=== PATIENT | female | born 1935 | race Caucasian/White ===

== ENCOUNTER 2017-05-27 20:36 | Emergency (ER) | payer MEDICARE ==
[2017-05-27] MEDS ORDERED: NS 0.9% 1000 ML* 1,000 ML IV ONE (21:05)
--- NOTE | 2017-05-27 21:30 | RAD ---
INDICATION: Left temporal hematoma after a fall COMPARISON: Chest x-ray dated November 27, 2007 TECHNIQUE: Single AP portable view of the chest was obtained. FINDINGS: Image quality is compromised due to the relative inferiority of a portable chest x-ray. The heart and mediastinum exhibit normal size and contour. The lungs are grossly clear. There is no evidence of a large pleural effusion. Visualized bones are normal for the patient's age. IMPRESSION: No radiographic evidence for acute cardiopulmonary abnormality on this portable chest x-ray.
[2017-05-27 21:35] LABS: Hematocrit 41 % (35-47); Hemoglobin 13.5 g/dl (12.0-16.0); Mean Corpuscular HGB Conc 33 g/dl (31-36); Mean Corpuscular Hemoglobin 32 pg (27-31); Mean Corpuscular Volume 95 fL (80-97); Mean Platelet Volume 7 um3 (7.4-10.4); Red Blood Count 4.29 10^6/ul (4.0-5.4); Red Cell Distribution Width 13 % (10.5-15); White Blood Count 7.1 10^3/ul (3.5-10.8)
[2017-05-27 21:48] LABS: Albumin 3.9 g/dL (3.2-5.2); BUN/Creatinine Ratio 19.7 (8-20); Calcium 9.3 mg/dL (8.6-10.3); EGFR African American 42.3 (>60); EGFR Non-African American 32.9 (>60); Globulin 3.6 g/dL (2-4); Magnesium 1.5 mg/dL (1.9-2.7); Potassium 3.3 mmol/L (3.5-5.0); Total Bilirubin 0.4 mg/dL (0.2-1.0); Total Protein 7.5 g/dL (6.4-8.9)
[2017-05-27 21:50] LABS: Troponin I 0.01 ng/mL (<0.04)
[2017-05-27 22:20] LABS: TSH (Thyroid Stimulating Horm) 6.06 mcIU/mL (0.34-5.60)
[2017-05-27] MEDS ORDERED: Acetaminophen TAB* 325 MG PO ONE (22:36)
[2017-05-27] MEDS ORDERED: Potassium Chlor TAB* 20 MEQ TAB.ER PO ONE (23:00)
[2017-05-27 23:41] VITALS: BP 135/76
--- NOTE | 2017-05-28 07:48 | RAD ---
INDICATION: Intracranial injury COMPARISON: None TECHNIQUE: Noncontrast axial source images were acquired from the skull base to the vertex. FINDINGS: Ventricles/sulci: The ventricles and cisterns are normal in size and configuration for age. Brain parenchyma: There is minor periventricular and subcortical white matter change compatible with chronic ischemia. Intracranial hemorrhage:None. Extra-axial spaces: There are no abnormal extra axial fluid collections or evidence of extra-axial mass. Calvarium: There is no calvarial fracture or other calvarial abnormality. Scalp: Large left frontal scalp hematoma and laceration. Is also a small heterogeneous calcification noted incidentally. Paranasal sinuses/mastoid: The paranasal sinuses and mastoid air cells are clear. Other: None. IMPRESSION: No acute intracranial findings. Left frontal scalp hematoma
--- NOTE | 2017-05-31 14:16 | ED ---
Ivan Paredes Alfonso, scribed for Vicky Shell MD on 05/27/17 at 2107 . Adult Trauma - HPI Summary HPI Summary: This patient is an 81 year old F BIBA to [facility] accompanied by daughter and [id number] s/p a fall at approximately 1945 today. She was wearing crocs, then turned the corner, pivoted, skidded, fell, and hit my head on a dresser. She was on the floor and got help through a medic alert button. The patient rates the aching pain 4/10 in severity. Symptoms aggravated by nothing. Symptoms alleviated by nothing. Patient reports head trauma. Patient denies LOC , CP, SOB, and dizziness. She lives alone. She drinks two cocktails daily. PMHx includes A-Fib, and breast cancer (remission). Her daily medications are Diltiazem HCL 240 mg, metoprolol tartrate 25 mg, ASA 81 mg, and furosemide 20 mg. 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 Patient denies LOC, CP, SOB, and dizziness.. Negative: SOB, Chest Pain, Nausea/ Vomiting, Loss of Consciousness Related History: Anticoagulants - aspirin 81mg only - Allergy/Home Medications Allergies/Adverse Reactions: Allergies Allergy/AdvReac Type Severity Reaction Status Date / Time No Known Allergies Allergy Verified 05/27/17 21:33 PMH/Surg Hx/FS Hx/Imm Hx Previously Healthy: No Cardiovascular History: Reports: Hx Atrial Fibrillation, Hx Congestive Heart Failure, Hx Hypertension Opthamlomology History: Denies: Hx Legally Blind EENT History: Denies: Hx Deafness - Cancer History Cancer Type, Location and Year: breast cancer, remission Hx Chemotherapy: No Hx Radiation Therapy: Yes - 1995 - Surgical History Surgery Procedure, Year, and Place: no surg hx Infectious Disease History: No Infectious Disease History: Denies: Traveled Outside the [place] in Last 30 Days - Family History Known Family History: Positive: Diabetes - Brother, Other - Lung cancer father, CHF mother - Social History Lives: Alone Alcohol Use: Daily - 2 cocktails Hx Substance Use: No Substance Use Type: Reports: None Smoking Status (MU): Former Smoker Review of Systems Negative: Fever Negative: Chest Pain Negative: Shortness Of Breath Positive: Other - fall Positive: Bruising - left frontal hematoma Neurological: Other - head trauma; negative LOC and dizziness All Other Systems Reviewed And Are Negative: Yes Physical Exam Triage Information Reviewed: Yes Vital Signs On Initial Exam: Initial Vitals Temp Pulse Resp BP Pulse Ox 96.8 F 87 18 155/80 95 05/27/17 20:39 05/27/17 20:39 05/27/17 20:39 05/27/17 20:39 05/27/17 20:39 Vital Signs Reviewed: Yes Appearance: Positive: Well-Appearing, Well-Nourished, Pain Distress Skin: Positive: Warm, Skin Color Reflects Adequate Perfusion, Other - Left frontal purple hematoma. Head/Face: Positive: Cephalohematoma - left frontal Eyes: Positive: EOMI, MATT, Conjunctiva Clear ENT: Positive: Normal ENT inspection, Pharynx normal, TMs normal, Other - No Pacheco's signs or raccoon eyes Neck: Positive: Supple, Nontender Respiratory/Lung Sounds: Positive: Clear to Auscultation, Breath Sounds Present , Other - no respiratory distress Cardiovascular: Positive: Pulses are Symmetrical in both Upper and Lower Extremities, IRR, Other - Brisk capillary refill. Negative: Murmur Abdomen Description: Positive: Nontender, No Organomegaly, Soft. Negative: Distended, Guarding, Peritoneal Signs, Pulsatile Mass Bowel Sounds: Positive: Present Musculoskeletal: Positive: Strength/ROM Intact, Other - No calf tenderness. Negative: Edema Left, Edema Right Neurological: Positive: Sensory/Motor Intact, Alert, Oriented to Person Place, Time, CN Intact II-III, Normal Gait, Facial Symmetry, Speech Normal Psychiatric: Positive: Normal Diagnostics - Vital Signs Vital Signs Temp Pulse Resp BP Pulse Ox 05/27/17 20:39 96.8 F 87 18 155/80 95 - Laboratory Lab Results: Lab Results 10/10/1205/27/17 05/27/17 Range/Units 21:26 21:26 21:26 WBC (3.5-10.8) 10^3/ul RBC (4.0-5.4) 10^6/ul Hgb (12.0-16.0) g/dl Hct (35-47) % MCV (80-97) fL MCH (27-31) pg MCHC (31-36) g/dl RDW (10.5-15) % Plt Count (150-450) 10^3/ul MPV (7.4-10.4) um3 Neut % (Auto) (38-83) % Lymph % (Auto) (25-47) % Bacon % (Auto) (1-9) % Eos % (Auto) (0-6) % Baso % (Auto) (0-2) % Absolute Neuts (auto) (1.5-7.7) 10^3/ul Absolute Lymphs (auto) (1.0-4.8) 10^3/ul Absolute Monos (auto) (0-0.8) 10^3/ul Absolute Eos (auto) (0-0.6) 10^3/ul Absolute Basos (auto) (0-0.2) 10^3/ul Absolute Nucleated RBC 10^3/ul Nucleated RBC % INR (Anticoag Therapy) 0.90 (0.89-1.11) APTT 27.4 (26.0-36.3) seconds Sodium 133 (133-145) mmol/L Potassium 3.3 L (3.5-5.0) mmol/L Chloride 99 L (101-111) mmol/L Carbon Dioxide 23 (22-32) mmol/L Anion Gap 11 (2-11) mmol/L BUN 30 H (6-24) mg/dL Creatinine 1.52 H (0.51-0.95) mg/dL Est GFR ( Amer) 42.3 (>60) Est GFR (Non-Af Amer) 32.9 (>60) BUN/Creatinine Ratio 19.7 (8-20) Glucose 114 H (70-100) mg/dL Lactic Acid (0.5-2.0) mmol/L Calcium 9.3 (8.6-10.3) mg/dL Magnesium 1.5 L (1.9-2.7) mg/dL Total Bilirubin 0.40 (0.2-1.0) mg/dL AST 22 (13-39) U/L ALT 18 (7-52) U/L Alkaline Phosphatase 115 H (34-104) U/L Troponin I 0.01 (<0.04) ng/mL B-Natriuretic Peptide 188 H ( - 100) pg/mL Total Protein 7.5 (6.4-8.9) g/dL Albumin 3.9 (3.2-5.2) g/dL Globulin 3.6 (2-4) g/dL Albumin/Globulin Ratio 1.1 (1-3) TSH 6.06 H (0.34-5.60) mcIU/mL Serum Alcohol 215 H (<10) mg/dL 05/27/17 05/27/17 Range/Units 21:26 21:26 WBC 7.1 (3.5-10.8) 10^3/ul RBC 4.29 (4.0-5.4) 10^6/ul Hgb 13.5 (12.0-16.0) g/dl Hct 41 (35-47) % MCV 95 (80-97) fL MCH 32 H (27-31) pg MCHC 33 (31-36) g/dl RDW 13 (10.5-15) % Plt Count 234 (150-450) 10^3/ul MPV 7 L (7.4-10.4) um3 Neut % (Auto) 69.8 (38-83) % Lymph % (Auto) 20.5 L (25-47) % Bacon % (Auto) 7.4 (1-9) % Eos % (Auto) 1.4 (0-6) % Baso % (Auto) 0.9 (0-2) % Absolute Neuts (auto) 5.0 (1.5-7.7) 10^3/ul Absolute Lymphs (auto) 1.5 (1.0-4.8) 10^3/ul Absolute Monos (auto) 0.5 (0-0.8) 10^3/ul Absolute Eos (auto) 0.1 (0-0.6) 10^3/ul Absolute Basos (auto) 0.1 (0-0.2) 10^3/ul Absolute Nucleated RBC 0 10^3/ul Nucleated RBC % 0 INR (Anticoag Therapy) (0.89-1.11) APTT (26.0-36.3) seconds Sodium (133-145) mmol/L Potassium (3.5-5.0) mmol/L Chloride (101-111) mmol/L Carbon Dioxide (22-32) mmol/L Anion Gap (2-11) mmol/L BUN (6-24) mg/dL Creatinine (0.51-0.95) mg/dL Est GFR ( Amer) (>60) Est GFR (Non-Af Amer) (>60) BUN/Creatinine Ratio (8-20) Glucose (70-100) mg/dL Lactic Acid 1.6 (0.5-2.0) mmol/L Calcium (8.6-10.3) mg/dL Magnesium (1.9-2.7) mg/dL Total Bilirubin (0.2-1.0) mg/dL AST (13-39) U/L ALT (7-52) U/L Alkaline Phosphatase (34-104) U/L Troponin I (<0.04) ng/mL B-Natriuretic Peptide ( - 100) pg/mL Total Protein (6.4-8.9) g/dL Albumin (3.2-5.2) g/dL Globulin (2-4) g/dL Albumin/Globulin Ratio (1-3) TSH (0.34-5.60) mcIU/mL Serum Alcohol (<10) mg/dL Result Diagrams: 05/27/17 21:26 05/27/17 21:26 Lab Statement: Any lab studies that have been ordered have been reviewed, and results considered in the medical decision making process. - Radiology CXR Radiology Interpretation Completed By: Radiologist - No radiographic evidence for acute cardiopulmonary abnormality on this portable chest x-ray. ED physician has reviewed this radiology report and agrees. - CT Brain CT Interpretation Completed By: Radiologist - No acute brain parenchymal abnormality. No hemorrhage, mass or acute territorial infarct. Age-related involutional changes and chronic small vessel changes. Chronic lacunar infarct left basal ganglia. No skull fracture. Swelling and small acute hematoma left frontal scalp. Nearby partly calcified scalp nodule incidentally noted. Clear visualized paranasal sinuses. Visualized mastoid air cells clear. ED physician has reviewed this radiology report and agrees. - EKG 2121 Cardiac Rate: NL - BPM 64 EKG Rhythm: Atrial Fibrillation EKG Interpretation: Borderline IV conduction delay (112). Prolonged QTc (511). Normal axis. NAC EKG Comparison: Other - No prior to compare Re-Evaluation - Re-Evaluation First Eval Re-Evaluation Time: 22:30 Change: Unchanged Comment: Daughter states patient has a headache for which she would like pain medication. Second Eval Re-Evaluation Time: 23:11 Change: Improved Comment: Lab and imaging results reviewed with patient. Adult Trauma Course/Dx - Course Course Of Treatment: Given IV fluids x 1 liter. KCL 40mEq po x 1 for K+ 3.3. acetaminophen 650mg po for JOSEPH. EtOH level 215 (pt and daughter surprised that level is this high, but pt admits ETOH). BUN 30/1.52 worse than previous. Mag 1.5 low. alk phos [address] brain left frontal hematoma. CXR NAD Assessment/Plan: This patient is an 81 year [facility] by daughter and [id number] s/p a fall at approximately 1945 today. She was wearing crocs, then turned the corner, pivoted, skidded, fell, and hit my head on a dresser. She was on the floor and got help through a medic alert button. The patient rates the aching pain 4/10 in severity. Symptoms aggravated by nothing. Symptoms alleviated by nothing. Patient reports head trauma. Patient denies LOC, CP, SOB, and dizziness. She lives alone. She drinks two cocktails daily. PMHx includes A-Fib, and breast cancer (remission). Her daily medications are Diltiazem HCL 240 mg, metoprolol tartrate 25 mg, ASA 81 mg, and furosemide 20 mg. She is not orthostatic. An EKG reveals A-Fib. CXR reveals No radiographic evidence for acute cardiopulmonary abnormality on this portable chest x-ray. ED physician has reviewed this radiology report and agrees. CT brain reveals No acute brain parenchymal abnormality. No hemorrhage, mass or acute territorial infarct. Age-related involutional changes and chronic small vessel changes. Chronic lacunar infarct left basal ganglia. No skull fracture. Swelling and small acute hematoma left frontal scalp. Nearby partly calcified scalp nodule incidentally noted. Clear visualized paranasal sinuses. Visualized mastoid air cells clear. ED physician has reviewed this radiology report and agrees. Patient will be discharged with follow up from PCP. The patient and family are agreeable with this plan. - Diagnoses Differential Diagnosis/HQI/PQRI: Positive: Abrasion(s), Contusion(s), Fracture, Hematoma(s), Laceration(s) Provider Diagnoses: Fall, Hematoma of frontal scalp, Alcohol intoxication, Hypokalemia, Hypomagnesemia, Hypertension, poor control, Chronic kidney disease (CKD) stage G3b/A3, moderately decreased glomerular filtration rate (GFR) between 30-44 mL/ min/1.73 square meter and albuminuria creatinine ratio greater than 300 mg/g, Atrial fibrillation Discharge - Discharge Plan Condition: Stable Disposition: HOME Patient Education Materials: Fall Prevention for Older Adults (ED), Head Injury (ED), At-Risk Alcohol Use (ED) Referrals: [facility] PHYSICIAN REFERRAL [Outside] (CALL THIS NUMBER TO GET ESTABLISHED WITH A PRIMARY CARE PROVIDER ) No Primary Care Phys,NOPCP [Primary Care Provider] - Additional Instructions: YOUR POTASSIUM WAS SLIGHTLY LOW AT 3.3, AND WE GAVE YOU ORAL POTASSIUM. YOUR ALCOHOL LEVEL WAS ELEVATED. YOUR CT BRAIN SHOWED ONLY THE HEMATOMA, NO FRACTURE OR BLEED IN THE BRAIN. YOUR KIDNEY FUNCTION IS WORSENED SINCE 2015 AND WILL NEED DEFINITE FOLLOW UP. RETURN TO THE ER IF ANY NEW OR WORSENING SYMPTOMS. The documentation as recorded by the Ivan cunningham Alfonso accurately reflects the service I personally performed and the decisions made by me, Vicky Shell MD.
== END 2017-05-27 23:39 | disposition home or self-care (01) ==
LOC: ED 20:36
DX: F10.129 Alcohol abuse with intoxication, unspecified (principal); I10 Essential (primary) hypertension; N18.9 Chronic kidney disease, unspecified; S00.03XA Contusion of scalp, initial encounter; W19.XXXA Unspecified fall, initial encounter; Y93.9 Activity, unspecified; Y92.9 Unspecified place or not applicable; E87.6 Hypokalemia; I48.91 Unspecified atrial fibrillation
CPT/HCPCS: 36415; 70450; 71010; 80053; 80320; 83605; 83735; 83880; 84443; 84484; 85025; 85610; 85730; 93005; 99283; A9270-GY; G0480

== ENCOUNTER 2017-10-02 21:09 | Observation (INO) | payer MEDICARE ==
[2017-10-02] MEDS ORDERED: Ondansetron INJ* 2 MG/ML VIAL IV ONE (22:34)
[2017-10-02] MEDS ORDERED: Morphine INJ* 2 MG/ML 1 ML CARPUJECT IV ONE (22:35)
[2017-10-02] MEDS ORDERED: Ketorolac INJ* 30 MG/ML 1 ML VIAL IV PUSH ONE (22:42)
[2017-10-03 00:40] LABS: EGFR Non-African American 36.1 (>60)
[2017-10-03 00:48] LABS: INR 0.89 (0.77-1.02)
--- NOTE | 2017-10-03 01:41 | ED ---
Edd Paredes Gabriel, scribed for Jackelyn Martin MD on 10/02/17 at 2131 . 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 The pt states she tripped on the carpet in her kitchen and fell hitting her left hip and left buttock. The patient rates the pain 3/10 in severity. Patient reports left hip pain. Patient denies LOC, head trauma, and increased edema from base line. Pt has bilateral artificial hip replacements and was unable to ambulate after the fall. Denies blood thinner use. - History of Current Complaint Chief Complaint: EDExtremityLower Stated Complaint: FALL Time Seen by Provider: 10/02/17 21:18 Hx Obtained From: Patient - 4 Mechanism of Injury: Fall Ambulatory at the Scene: No Loss of Consciousness: no loss of consciousness Onset/Duration: Still Present Onset of Pain: Immediate Onset Severity: Mild Current Severity: Mild Pain Intensity: 3 Pain Scale Used: 0-10 Numeric Location: Other - hip Associated Signs & Symptoms: Positive: Negative - head trauma, Other: - left hip pain. Negative: Loss of Consciousness - Allergy/Home Medications Allergies/Adverse Reactions: Allergies Allergy/AdvReac Type Severity Reaction Status Date / Time No Known Allergies Allergy Verified 05/27/17 21:33 PMH/Surg Hx/FS Hx/Imm Hx Endocrine/Hematology History: Denies: Hx Anticoagulant Therapy Cardiovascular History: Reports: Hx Atrial Fibrillation, Hx Congestive Heart Failure, Hx Hypertension Respiratory History: Denies: Hx Chronic Obstructive Pulmonary Disease (COPD) Sensory History: Denies: Hx Legally Blind, Hx Deafness Opthamlomology History: Denies: Hx Legally Blind - Cancer History Cancer Type, Location and Year: breast cancer, remission Hx Chemotherapy: No Hx Radiation Therapy: Yes - 1995 - Surgical History Surgery Procedure, Year, and Place: no surg hx Infectious Disease History: No Infectious Disease History: Denies: Traveled Outside the [place] in Last 30 Days - Family History Known Family History: Positive: Diabetes - Brother, Other - Lung cancer father, CHF mother - Social History Lives: With Family Alcohol Use: Occasionally Alcohol Amount: 2 cocktails daily Hx Substance Use: No Substance Use Type: Reports: None Smoking Status (MU): Former Smoker Review of Systems Constitutional: Negative - head trauma Positive: Other - left hip pain . Negative: Edema Neurological: Negative - LOC All Other Systems Reviewed And Are Negative: Yes Physical Exam - Summary Physical Exam Summary: VITAL SIGNS: Reviewed. GENERAL: Patient is a well-developed and nourished female who is lying comfortable in the stretcher. Patient is not in any acute respiratory distress. HEAD AND FACE: No signs of trauma. No ecchymosis, hematomas or skull depressions. No sinus tenderness. EYES: PERRLA, EOMI x 2, No injected conjunctiva, no nystagmus. EARS: Hearing grossly intact. Ear canals and tympanic membranes are within normal limits. MOUTH: Oropharynx within normal limits. NECK: Supple, trachea is midline, no adenopathy, no JVD, no carotid bruit, no c- spine tenderness, neck with full ROM. CHEST: Symmetric, no tenderness at palpation LUNGS: Clear to auscultation bilaterally. No wheezing or crackles. CVS: Regular rate and rhythm, S1 and S2 present, no murmurs or gallops appreciated. ABDOMEN: Soft, non-tender. No signs of distention. No rebound no guarding, and no masses palpated. Bowel sounds are normal. EXTREMITIES: TTP over the left hip. Mild discomfort with flexion of the left hip. NEURO: Alert and oriented x 3. No acute neurological deficits. Speech is normal and follows commands. SKIN: Dry and warm Triage Information Reviewed: Yes Vital Signs On Initial Exam: Initial Vitals Temp Pulse Resp BP Pulse Ox 97.9 F 80 22 140/77 93 10/02/17 21:13 10/02/17 21:13 10/02/17 21:13 10/02/17 21:13 10/02/17 21:13 Vital Signs Reviewed: Yes Diagnostics - Vital Signs Vital Signs Temp Pulse Resp BP Pulse Ox 10/02/17 21:13 97.9 F 80 22 140/77 93 - Laboratory Lab Results: Lab Results 10/03/17 10/03/17 Range/Units 00:15 00:15 INR (Anticoag Therapy) 0.89 (0.77-1.02) APTT 20.8 L (26.0-36.3) seconds Sodium 133 (133-145) mmol/L Potassium 3.6 (3.5-5.0) mmol/L Chloride 99 L (101-111) mmol/L Carbon Dioxide 23 (22-32) mmol/L Anion Gap 11 (2-11) mmol/L BUN 27 H (6-24) mg/dL Creatinine 1.40 H (0.51-0.95) mg/dL Est GFR ( Amer) 46.4 (>60) Est GFR (Non-Af Amer) 36.1 (>60) BUN/Creatinine Ratio 19.3 (8-20) Glucose 103 H (70-100) mg/dL Calcium 9.9 (8.6-10.3) mg/dL Total Bilirubin 0.40 (0.2-1.0) mg/dL AST 22 (13-39) U/L ALT 17 (7-52) U/L Alkaline Phosphatase 133 H (34-104) U/L Total Protein 8.0 (6.4-8.9) g/dL Albumin 4.2 (3.2-5.2) g/dL Globulin 3.8 (2-4) g/dL Albumin/Globulin Ratio 1.1 (1-3) Result Diagrams: 10/03/17 00:15 Lab Statement: Any lab studies that have been ordered have been reviewed, and results considered in the medical decision making process. 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 The pt states she tripped on the carpet in her kitchen and fell hitting her left hip and left buttock. The patient rates the pain 3/10 in severity. Patient reports left hip pain. Patient denies LOC, head trauma, and increased edema from base line. Pt has bilateral artificial hip replacements and was unable to ambulate after the fall. Denies blood thinner use. Hip XR reveals, no fracture seen. CT pelvis reveals, per radiology, no evidence of acute traumatic pathology. Test results with no significant abnormalities. Blood work obtained. In the ED course the patient was given toradol, Zofran, and morphine. We discussed patient care with Dr. Rapp and they have agreed to admit the patient. Dx hip pain. Patient [facility] be [place] [facility] [place]. The patient is agreeable with this plan. - Diagnoses Provider Diagnoses: Left hip pain - Physician Notifications Discussed Care Of Patient With: Ken Rapp Time Discussed With Above Provider: 01:20 Instructed by Provider To: Admit As Inpatient Discharge - Discharge Plan Condition: Fair Disposition: ADMITTED TO [facility] Referrals: No Primary Care Phys,NOPCP [Primary Care Provider] - The documentation as recorded by the Edd cunningham Gabriel accurately reflects the service I personally performed and the decisions made by me, Jackelyn Martin MD.
[2017-10-03] MEDS ORDERED: Albuterol 2.5 MG/3 ML NEB.SOL* (0.083%) INH PRN (01:44)
[2017-10-03] MEDS ORDERED: CMCS:Melatonin (NF) 3 MG TAB PO PRN (01:44)
[2017-10-03] MEDS ORDERED: oxyCODONE TAB* 5 MG TAB PO PRN (01:45)
[2017-10-03] MEDS ORDERED: Ondansetron INJ* 2 MG/ML VIAL IV PRN (01:45)
[2017-10-03] MEDS ORDERED: traMADol TAB* 50 MG PO PRN (01:45)
--- NOTE | 2017-10-03 02:16 | HP ---
H&P (Free Text) History and Physical: PCP: none Date/Time: 10/03/2017 0140 CC: L hip pain s/p fall HPI: Mrs Dangelo is an 82YO obese white female who lives alone w/ HX B BEN, AFIB, HTN, breast CA, & GI bleed who was at home putting a dish in her refrigerator when she tripped over a rug and fell back on her buttocks. There was no head impact or LOC. She had immediate pain in the L hip with weight bearing and walking, but none at rest. She denies prodromal symptoms, specifically chest pain, SOB, palpitations, light-headedness, focal W/N/T, or other issues. She has been given ketorolac IV in ED, but is still unable to ambulate. PMedHx AFIB not on anticoagulation GI bleed on rivaroxaban HTN HX R breast CA Medications Nursing to reconcile. Allergies No Known Allergies Allergy (Verified 05/27/17 21:33) PSurgHx R lumpectomy hysterectomy ORIF R forearm B BEN SocHx: quit smoking >40years ago, 1-2 alcoholic drinks daily, no recreational drugs; , lives alone; DNR/I code status FamHx: Mother passed at 83 of CHF. Father passed at 65 of lung CA. ROS: as above, otherwise reviewed and all were negative vitals: Vital Signs Temp 36.6 C 10/02/17 21:13 Pulse 75 10/03/17 02:00 Resp 22 10/02/17 21:13 BP 143/81 10/03/17 02:00 Pulse Ox 93 10/03/17 02:00 Intake & Output 10/02/17 10/02/17 10/03/17 11:59 23:59 11:59 Weight 95.254 kg Constitutional: NAD, normally developed, obese white female HEENM: atraumatic; sclera/conjunctiva: aniciteric/clear; hearing: clinically intact; oropharynx: clear, mucosa moist Neck: soft tissue: non-tender; thyroid: normal Pulmonary: clear to auscultation bilaterally, good aeration, no accessory muscle use CV: RR/RR, normal S1S2, no carotid bruit, no jugular venous distention, 2+ B DP/ PT, trace BLE edema Abdominal: soft, non-distended, non-tender, no rebound/guarding/rigidity, normoactive bowel sounds, no hepatosplenomegaly or masses, no costovertebral angle tenderness Musculoskeletal: general: grossly intact, no tenderness w/ palpation Integumental: normal appearance and texture of exposed skin Psychiatric orientation: AA&O to PPS affect: calm mood: cooperative eye contact: good content: reliable responses: timely insight: fair to good Testing: Lab Results 10/03/17 10/03/17 Range/Units 00:15 00:15 INR (Anticoag Therapy) 0.89 (0.77-1.02) APTT 20.8 L (26.0-36.3) seconds Sodium 133 (133-145) mmol/L Potassium 3.6 (3.5-5.0) mmol/L Chloride 99 L (101-111) mmol/L Carbon Dioxide 23 (22-32) mmol/L Anion Gap 11 (2-11) mmol/L BUN 27 H (6-24) mg/dL Creatinine 1.40 H (0.51-0.95) mg/dL Est GFR ( Amer) 46.4 (>60) Est GFR (Non-Af Amer) 36.1 (>60) BUN/Creatinine Ratio 19.3 (8-20) Glucose 103 H (70-100) mg/dL Calcium 9.9 (8.6-10.3) mg/dL Total Bilirubin 0.40 (0.2-1.0) mg/dL AST 22 (13-39) U/L ALT 17 (7-52) U/L Alkaline Phosphatase 133 H (34-104) U/L Total Protein 8.0 (6.4-8.9) g/dL Albumin 4.2 (3.2-5.2) g/dL Globulin 3.8 (2-4) g/dL Albumin/Globulin Ratio 1.1 (1-3) XRY pelvis & L hip, personally reviewed: no acute abnormality CT pelvis WO, personally reviewed: IMPRESSION: No evidence of acute traumatic pathology. Impression: 82F presenting with intractable L hip pain s/p mechanical fall, no bony injury identified on CT DIAGNOSIS & PLAN Primary intractable L hip pain s/p mechanical fall : no bony injury identified on CT or XRY : pain control : PT evaluation : consider orthopedic consult in AM : supportive care Secondary AFIB : not on anticoagulation : review meds once reconciled HX GI bleed on rivaroxaban : no acute issues HTN: review meds once reconciled HX R breast CA : no evidence of disease Admission Rational: observation for pain control DVTp: SCDs & heparin SQ Code Status: full, considering DNR/I HCP: daughterKrystyna
[2017-10-03] MEDS: Acetaminophen TAB* 325 MG PO PRN ×2 (03:26→18:24)
[2017-10-03] MEDS ORDERED: Omeprazole CAP* 20 MG PO SCH (06:00)
--- NOTE | 2017-10-03 07:19 | RAD ---
INDICATION: Left hip injury. COMPARISON: There are no prior studies available for comparison. TECHNIQUE: An AP view of the pelvis and frontal and lateral views of the left hip were obtained. FINDINGS: The patient is status post total bilateral hip replacement surgery. The bones and prostheses are in normal alignment. No fracture is seen. IMPRESSION: STATUS POST TOTAL BILATERAL HIP REPLACEMENT SURGERY, NO EVIDENCE FOR FRACTURE.
--- NOTE | 2017-10-03 07:25 | RAD ---
INDICATION: Trauma, left hip pain. COMPARISON: Correlation is made with a prior x-ray study of the left hip of the same date. TECHNIQUE: Contiguous axial sections were obtained through the pelvis without intravenous or oral contrast. Images were reconstructed in the coronal and sagittal planes. FINDINGS: The patient is status post total bilateral hip replacement surgery. The bones and prostheses are in normal alignment. There is no gross evidence for loosening. No fracture is seen. There is osteitis pubis and mild bilateral sacroiliitis. There is moderate degenerative disc disease in the visualized portion of the lower lumbar spine. The visualized portion of the small bowel colon appear nondistended. There is moderate sigmoid diverticulosis without evidence for diverticulitis. No free intraperitoneal air or fluid is seen. No hematoma is noted. IMPRESSION: STATUS POST TOTAL BILATERAL HIP REPLACEMENT SURGERY, NO EVIDENCE FOR ACUTE FINDING.
[2017-10-03] MEDS ORDERED: Acetaminophen TAB* 325 MG PO ONE (10:00)
[2017-10-03] MEDS ORDERED: Metoprolol Tartrate TAB* 25 MG PO SCH (10:00)
--- NOTE | 2017-10-03 10:00 | PN ---
Subjective Date of Service: 10/03/17 Interval History: L hip pain better but still needed assist to use bedside commode this AM. She was able to stand unassisted. She can move her leg in bed which she coulgdn't do last night. Objective Active Medications: Acetaminophen (Tylenol Tab*) 650 mg PO Q6H PRN PRN Reason: FEVER/PAIN Last Admin: 10/03/17 03:26 Dose: 650 mg Acetaminophen (Tylenol Tab*) 975 mg PO ONCE ONE Stop: 10/03/17 10:01 Albuterol (Ventolin 2.5 Mg/3 Ml Neb.Kecia*) 2.5 mg INH Q2H PRN PRN Reason: SOB/WHEEZING Docusate Sodium (Colace Cap*) 200 mg PO BID SOILA Heparin Sodium (Porcine) (Heparin Vial(*)) 5,000 units SUBCUT Q8HR SOILA Omeprazole (Prilosec Cap*) 20 mg PO DAILY@0600 [facility] Last Admin: 10/03/17 06:13 Dose: Not Given Ondansetron HCl (Zofran Inj*) 4 mg IV Q6H PRN PRN Reason: NAUSEA Oxycodone HCl (Roxycodone Tab*) 5 mg PO Q4H PRN PRN Reason: PAIN Tramadol HCl (Ultram*) 50 mg PO Q6H PRN PRN Reason: PAIN Vital Signs - 8 hr 10/03/17 10/03/17 10/03/17 02:00 02:30 02:56 Temperature 98.3 F Pulse Rate 75 78 78 Respiratory 18 Rate Blood Pressure 143/81 118/102 118/102 (mmHg) O2 Sat by Pulse 93 91 91 Oximetry 10/03/17 10/03/17 10/03/17 03:10 07:25 07:41 Temperature 98.2 F 98.6 F Pulse Rate 84 85 Respiratory 20 16 16 Rate Blood Pressure 158/91 176/82 (mmHg) O2 Sat by Pulse 97 97 Oximetry 10/03/17 08:00 Temperature Pulse Rate 85 Respiratory 17 Rate Blood Pressure (mmHg) O2 Sat by Pulse 97 Oximetry Oxygen Devices in Use Now: None Appearance: Alert, partly up in bed. In good spirits. Looks comfortable. Eyes: No Scleral Icterus Neck: NL Appearance and Movements; NL JVP, No Thyroid Enlargement, Masses Respiratory: Symmetrical Chest Expansion and Respiratory Effort, Clear to Auscultation, Clear to Percussion Cardiovascular: NL Sounds; No Murmurs; No JVD, RRR, No Edema, - Extremities: No Edema, No Clubbing, Cyanosis, - Skin: No Rash or Ulcers, No Nodules or Sclerosis, - Neurological: Alert and Oriented x 3, NL Sensation Result Diagrams: 10/03/17 00:15 Additional Lab and Data: Lab Results 10/03/17 10/03/17 Range/Units 00:15 00:15 INR (Anticoag Therapy) 0.89 (0.77-1.02) APTT 20.8 L (26.0-36.3) seconds Sodium 133 (133-145) mmol/L Potassium 3.6 (3.5-5.0) mmol/L Chloride 99 L (101-111) mmol/L Carbon Dioxide 23 (22-32) mmol/L Anion Gap 11 (2-11) mmol/L BUN 27 H (6-24) mg/dL Creatinine 1.40 H (0.51-0.95) mg/dL Est GFR ( Amer) 46.4 (>60) Est GFR (Non-Af Amer) 36.1 (>60) BUN/Creatinine Ratio 19.3 (8-20) Glucose 103 H (70-100) mg/dL Calcium 9.9 (8.6-10.3) mg/dL Total Bilirubin 0.40 (0.2-1.0) mg/dL AST 22 (13-39) U/L ALT 17 (7-52) U/L Alkaline Phosphatase 133 H (34-104) U/L Total Protein 8.0 (6.4-8.9) g/dL Albumin 4.2 (3.2-5.2) g/dL Globulin 3.8 (2-4) g/dL Albumin/Globulin Ratio 1.1 (1-3) Assess/Plan/Problems-Billing Assessment: - Patient Problems (1) Left hip pain Current Visit: Yes Status: Acute Code(s): M25.552 - PAIN IN LEFT HIP SNOMED Code(s): 28432574 Comment: Neg CT. Suspect muscle/ligament strain/spasm. Improved. APAP 1 gm po now, reevaluate in about 4 hrs. (2) Atrial fibrillation Current Visit: Yes Status: Acute Code(s): I48.91 - UNSPECIFIED ATRIAL FIBRILLATION SNOMED Code(s): 17939382 Comment: Had GI bleed on rivaroxaban. Continue ASA, diltiazem. (3) CKD (chronic kidney disease) stage 3, GFR 30-59 ml/min Current Visit: Yes Status: Acute Code(s): N18.3 - CHRONIC KIDNEY DISEASE, STAGE 3 (MODERATE) SNOMED Code(s): 588617274 Comment: GFR 36.1 10/03/17.
[2017-10-03] MEDS: Diltiazem CD CAP* 240 MG PO SCH (10:11)
[2017-10-03] MEDS: Docusate CAP* 100 MG PO SCH ×2 (10:13→22:13)
[2017-10-03] MEDS: Albuterol HFA INHALER* 8 gm MDI INH PRN (15:36)
[2017-10-04] MEDS: Acetaminophen TAB* 325 MG PO PRN ×2 (00:33→08:59)
[2017-10-04] MEDS: Albuterol HFA INHALER* 8 gm MDI INH PRN (02:21)
[2017-10-04] MEDS ORDERED: Melatonin (NF) 3 MG TAB PO ONE (04:00)
[2017-10-04] MEDS ORDERED: Heparin VIAL(*) 5000 UNITS/ML VIAL (FIVE THOUSAND) SUBCUT SCH (06:00)
[2017-10-04] MEDS ORDERED: Omeprazole CAP* 20 MG PO SCH (07:30)
[2017-10-04 08:30] VITALS: BP 167/86
[2017-10-04] MEDS: Diltiazem CD CAP* 240 MG PO SCH (08:58)
[2017-10-04] MEDS: Docusate CAP* 100 MG PO SCH (08:59)
[2017-10-04] MEDS ORDERED: Metoprolol Tartrate TAB* 25 MG PO SCH (09:00)
[2017-10-04] MEDS ORDERED: Aspirin Low Dose CHEW TAB* 81 MG PO SCH (09:00)
[2017-10-04] MEDS ORDERED: Furosemide TAB* 20 MG PO SCH (09:00)
--- NOTE | 2017-10-04 10:51 | DS ---
DATE OF ADMISSION: 10/03/2017. DATE OF DISCHARGE: 10/04/2017. HISTORY OF PRESENT ILLNESS: This 82-year-old woman had a mechanical fall at home. She was very sore in her left hip. She had CT of the pelvis, as well as hip and pelvis x-ray in the ER and no fracture was identified. After 24 hours in the hospital, she felt much better and was able to ambulate adequ ately. Physical Therapy did evaluate her. She required only acetaminophen for pain control at the t alanis of discharge. FINAL DIAGNOSES: 1. Soft tissue trauma. 2. Atrial fibrillation. 3. Chronic kidney disease. DISCHARGE MEDICATIONS: 1. Acetaminophen 650 mg every 6 hours prn. 2. Metoprolol 25 mg b.i.d. 3. Furosemide 20 mg daily. 4. Diltiazem CD 240 mg daily. 5. Aspirin 81 mg daily. The patient is in the process of obtaining a new primary care physician. [id number]/[facility] #: [id number]
== END 2017-10-04 13:50 | disposition home or self-care (01) ==
LOC: ED 21:09 → MEDTELE 10-03 01:43
PROVIDERS: ADMIT Hospitalist; ATTEND Internal Medicine
DX: S79.912A Unspecified injury of left hip, initial encounter (principal); I48.91 Unspecified atrial fibrillation; N18.9 Chronic kidney disease, unspecified; M25.552 Pain in left hip; Z87.891 Personal history of nicotine dependence; Z86.79 Personal history of other diseases of the circulatory system; Z87.09 Personal history of other diseases of the respiratory system; W19.XXXA Unspecified fall, initial encounter; Y92.009 Unspecified place in unspecified non-institutional (private) residence as the place of occurrence of the external cause; Z79.82 Long term (current) use of aspirin
CPT/HCPCS: 36415; 72192; 80053; 85610; 85730; 94640; 96374; 96375; 99284; A9270-GY; G0378; G8978-GP-CI; G8978-GP-CK; G8979-GP-CH; G8979-GP-CI; G8980-GP-CI; J1644; J1885

== ENCOUNTER 2018-01-29 08:15 | Day surgery (SDC) | payer MEDICARE ==
[~2018-01-29 08:15] MED LIST: Buffered Lidocaine 0.9% SYRIN* 5 ML/SYR SYRINGE INTRADERM ONE
[2018-01-29] MEDS ORDERED: Lidocaine 1%* 5 ML VIAL ONE (09:27)
[2018-01-29] MEDS ORDERED: Cyclopentolate 1% OPTH.SOL* 2 ML BTL ONE (09:27)
[2018-01-29] MEDS ORDERED: Proparacaine 0.5% OPHTH.SOL* 15 ML BTL ONE (09:27)
[2018-01-29] MEDS ORDERED: Ketorolac 0.5% OPHTH (NF) 0.5 % 5 ML BTL ONE (09:27)
[2018-01-29] MEDS ORDERED: Phenylephrine 2.5% OPTH.SOL* 2 ML BTL ONE (09:27)
[2018-01-29] MEDS ORDERED: Neomycin/Polymy/Dex OPTH.SUSP* MAXITROL 0.1% 5 ML ONE (09:27)
[2018-01-29] MEDS ORDERED: Povidone Iodine 5% OPTH* 30 ML BTL ONE (09:27)
[2018-01-29] MEDS ORDERED: acetaZOLAMIDE TAB* 250 MG ONE (09:27)
[2018-01-29] MEDS ORDERED: Lidocaine 2% EPI 1:200000 MPF*10-20 ML VIAL ONE (09:27)
[2018-01-29] MEDS ORDERED: Midazolam* 1 MG/ML 2 ML VIAL (2 MG) ONE (10:32)
[2018-01-29 11:26] VITALS: BP 151/81
--- NOTE | 2018-01-29 12:46 | OP ---
DATE OF OPERATION: 01/29/2018. DATE OF : 1935. SURGEON: Jesus Vaughn M.D. PREOPERATIVE DIAGNOSIS: Cataract left eye. POSTOPERATIVE DIAGNOSIS: Cataract left eye. OPERATIVE PROCEDURE: Extracapsular cataract extraction with intraocular lens implant and CTR left ey e. PROCEDURE: The patient was brought to the operating room after being given 1/2% Alcaine with epineph rine drops in the preoperative area. The eye was prepped and draped in the usual sterile fashion. S terile drape and eyelid speculum were placed. Again, topical 1/2% Alcaine with epinephrine was given . A paracentesis incision was made at the 3 o'clock position with the No.75 blade. Clear cornea inc ision 2.2 x 2.2-mm was created at the 6 o'clock position starting at the anterior limbus using the 2. 2-mm keratome. The anterior chamber was irrigated with 0.4 mL of 1% non-preservative intracameral li docaine and filled with DisCoVisc. A capsulorrhexis was completed using the cystotome and the Utrata forceps. Hydrodissection was performed with balanced salt solution. The lens nucleus was removed wi th the Phacoemulsification handpiece without incident. Cortex was removed with the irrigation-aspira tion handpiece. The capsular bag was re-inflated using DisCoVisc and an [id number] 21 implant was insert ed with the shooter, followed by a capsular tension ring [id number] inserted into the capsule using a dipak oter. The irrigation-aspiration handpiece was used to remove all residual DisCoVisc. The eye was re filled with balanced salt solution and the wound checked and found to be watertight. Topical Maxitro l drops were given. [id number]/[facility] #: [id number]
--- NOTE | 2018-01-29 12:46 | OP ---
ADDENDUM TO OPERATIVE REPORT DATE OF OPERATION: 01/29/2018. 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 [id number]/[facility] #: [id number] ROMIE
== END 2018-01-29 11:23 | disposition home or self-care (01) ==
LOC: OREAST 08:15
PROVIDERS: ATTEND Specialist
DX: H25.812 Combined forms of age-related cataract, left eye (principal); H40.1424 Capsular glaucoma with pseudoexfoliation of lens, left eye, indeterminate stage; H04.123 Dry eye syndrome of bilateral lacrimal glands; I10 Essential (primary) hypertension; I48.91 Unspecified atrial fibrillation; J45.909 Unspecified asthma, uncomplicated; M19.90 Unspecified osteoarthritis, unspecified site; Z85.3 Personal history of malignant neoplasm of breast; Z87.891 Personal history of nicotine dependence
CPT/HCPCS: A9270-GY; J2250; V2632

== ENCOUNTER 2018-02-05 06:55 | Day surgery (SDC) | payer MEDICARE ==
[~2018-02-05 06:55] MED LIST changes: +Acetaminophen TAB* 325 MG PO PRN
[2018-02-05] MEDS ORDERED: Midazolam* 1 MG/ML 2 ML VIAL (2 MG) ONE (08:43)
[2018-02-05] MEDS ORDERED: fentaNYL* 50 MCG/ML 2 ML VIAL (100 MCG VIAL) ONE (08:43)
[2018-02-05 09:28] VITALS: BP 171/78
[2018-02-05] MEDS ORDERED: Proparacaine 0.5% OPHTH.SOL* 15 ML BTL ONE (09:55)
[2018-02-05] MEDS ORDERED: Neomycin/Polymy/Dex OPTH.SUSP* MAXITROL 0.1% 5 ML ONE (09:55)
[2018-02-05] MEDS ORDERED: Lidocaine 1%* 5 ML VIAL ONE (09:55)
[2018-02-05] MEDS ORDERED: acetaZOLAMIDE TAB* 250 MG ONE (09:55)
[2018-02-05] MEDS ORDERED: Phenylephrine 2.5% OPTH.SOL* 2 ML BTL ONE (09:55)
[2018-02-05] MEDS ORDERED: Lidocaine 2% EPI 1:200000 MPF*10-20 ML VIAL ONE (09:55)
[2018-02-05] MEDS ORDERED: Ketorolac 0.5% OPHTH (NF) 0.5 % 5 ML BTL ONE (09:55)
[2018-02-05] MEDS ORDERED: Povidone Iodine 5% OPTH* 30 ML BTL ONE (09:55)
[2018-02-05] MEDS ORDERED: Cyclopentolate 1% OPTH.SOL* 2 ML BTL ONE (09:55)
--- NOTE | 2018-02-05 12:40 | OP ---
OPERATIVE NOTE: DATE OF OPERATION: 02/05/18 DATE OF : [birth year] SURGEON: Jesus Vaughn MD PREOPERATIVE DIAGNOSIS: Cataract, right eye. POSTOPERATIVE DIAGNOSIS: Cataract, right eye. OPERATIVE PROCEDURE: Extracapsular cataract extraction with intraocular lens implant, right eye. PROCEDURE: The patient was brought to the operating room after being given 1/2% Alcaine with epineph rine drops in the preoperative area. The eye was prepped and draped in the usual sterile fashion. S terile drape and eyelid speculum were placed. Again, topical 1/2% Alcaine with epinephrine was given . A paracentesis incision was made at the 9 o'clock position with the No.75 blade. Clear cornea inc ision 2.2 x 2.2-mm was created at the 12 o'clock position starting at the anterior limbus using the 2 .2-mm keratome. The anterior chamber was irrigated with 0.4 mL of 1% non-preservative intracameral l idocaine and filled with DisCoVisc. A capsulorrhexis was completed using the cystotome and the Utrat a forceps. Hydrodissection was performed with balanced salt solution. The lens nucleus was removed w ith the Phacoemulsification handpiece without incident. Cortex was removed with the irrigation-aspir ation handpiece. The capsular bag was re-inflated using DisCoVisc and an SN60WF 20.5 implant was ins erted with the shooter. The irrigation-aspiration handpiece was used to remove all residual DisCoVis c. The eye was refilled with balanced salt solution and the wound checked and found to be watertight . Topical Maxitrol drops were given. [id number]/[facility] #: [id number]
== END 2018-02-05 09:30 | disposition home or self-care (01) ==
LOC: OREAST 06:55
PROVIDERS: ATTEND Specialist
DX: H25.811 Combined forms of age-related cataract, right eye (principal); H40.1424 Capsular glaucoma with pseudoexfoliation of lens, left eye, indeterminate stage; Z87.891 Personal history of nicotine dependence; Z85.3 Personal history of malignant neoplasm of breast; J45.909 Unspecified asthma, uncomplicated; I48.91 Unspecified atrial fibrillation; I10 Essential (primary) hypertension; E78.00 Pure hypercholesterolemia, unspecified; Z68.36 Body mass index [BMI] 36.0-36.9, adult; M19.90 Unspecified osteoarthritis, unspecified site
CPT/HCPCS: A9270-GY; J2250; J3010; V2632

== ENCOUNTER 2018-12-27 11:39 | Emergency (ER) | payer MEDICARE ==
--- NOTE | 2018-12-27 12:15 | ED ---
Shortness of Breath - HPI Summary HPI Summary: This patient is a 83 year old F brought in by EMS to ED with a chief complaint of SOB since 3-4 weeks ago. The CC is described as intermittent but getting worse in the past two days. Patient rates the pain 0/10 in severity. Symptoms aggravated by nothing. Symptoms alleviated by nothing. Patient reports dizziness and swelling in legs and feet. She denies cough, fever, chest pain, and recent weight gain. She cannot sleep flat on her back, so she sleeps on her side with one pillow. Per she uses the bathroom a lot in the evening. Patient has PMHx of chronic a-fib that she does not take blood thinners for, CHF treated with Lasix 2x20 mg in the morning, asthma, HTN, PNA, ulcer, UTI, arthritis, sciatica, but no COPD. PSHx of lumpectomy and hysterectomy. FHx of DM , CHF mother, and lung cancer father. She drinks alcohol daily, does not use substances, and is a former cigarette smoker. - History of Current Complaint Chief Complaint: EDShortnessOfBreath Time Seen by Provider: 12/27/18 11:48 Hx Obtained From: Patient, Family/Order Checker Packer Processer - Onset/Duration: Lasting Weeks - 3-4 weeks, Still Present, Worse Since - 2 days ago Timing: Intermittent Episodes Lasting: Aggrevating Factors: Nothing Alleviating Factors: Nothing Associated Signs & Symptoms: Negative - Cough, fever, chest pain, weight gain, Dizzy, Calf Pain/Swelling - Bilateral leg and foot swelling - Allergy/Home Medications Allergies/Adverse Reactions: Allergies Allergy/AdvReac Type Severity Reaction Status Date / Time No Known Allergies Allergy Verified 02/05/18 07:25 Home Medications: Home Medications Nystatin CREAM* 1 applic TOPICAL BID 12/27/18 [History Confirmed 12/27/18] Omeprazole 20 mg PO BID 12/27/18 [History Confirmed 12/27/18] PMH/Surg Hx/FS Hx/Imm Hx Previously Healthy: No Endocrine/Hematology History: Denies: Hx Anticoagulant Therapy Cardiovascular History: Reports: Hx Atrial Fibrillation, Hx Congestive Heart Failure, Hx Hypertension, Other Cardiovascular Problems/Disorders - Atrial fibrillation Respiratory History: Reports: Hx Asthma, Hx Pneumonia Denies: Hx Chronic Obstructive Pulmonary Disease (COPD), Other Respiratory Problems/Disorders GI History: Reports: Hx Ulcer - history of, 1997, Other GI Disorders History: Reports: Other Problems/Disorders - history of UTI in past years Musculoskeletal History: Reports: Hx Arthritis, Other Musculoskeletal History - Hx: Sciatica Sensory History: Reports: Hx Cataracts Denies: Hx Contacts or Glasses, Hx Legally Blind, Hx Deafness, Hx Hearing Aid Opthamlomology History: Reports: Hx Cataracts Denies: Hx Contacts or Glasses, Hx Legally Blind Neurological History: Denies: Other Neuro Impairments/Disorders - Cancer History Cancer Type, Location and Year: breast cancer, remission Hx Chemotherapy: No Hx Radiation Therapy: Yes - 1995 - Surgical History Surgery Procedure, Year, and Place: BL BEN, ORIF R forearm , R lumpectomy, hystrectomy Hx Anesthesia Reactions: No Infectious Disease History: No Infectious Disease History: Denies: Traveled Outside the [place] in Last 30 Days - Family History Known Family History: Positive: Diabetes - Brother, Other - Lung cancer father, CHF mother - Social History Alcohol Use: Daily Alcohol Amount: 2 cocktails daily Hx Substance Use: No Substance Use Type: Reports: None Hx Tobacco Use: Yes Smoking Status (MU): Former Smoker Type: Cigarettes Have You Smoked in the Last Year: No Review of Systems Constitutional: Negative - Weight gain Negative: Fever Negative: Chest Pain Positive: Shortness Of Breath. Negative: Cough Positive: Other - Swelling in bilateral lower extremities Neurological: Other - Dizziness All Other Systems Reviewed And Are Negative: Yes Physical Exam - Summary Physical Exam Summary: VITAL SIGNS: Reviewed. GENERAL: Patient is an obese female who is lying comfortable in the stretcher. Patient is not in acute respiratory distress and can speak full sentences. HEAD AND FACE: No signs of trauma. No ecchymosis, hematomas or skull depressions. No sinus tenderness. EYES: PERRLA, EOMI x 2, No injected conjunctiva, no nystagmus. EARS: Hearing grossly intact. Ear canals and tympanic membranes are within normal limits. MOUTH: Oropharynx within normal limits. NECK: Supple, trachea is midline, no adenopathy, no JVD, no carotid bruit, no c- spine tenderness, neck with full ROM. CHEST: Symmetric, no tenderness at palpation LUNGS: Decreased breath sounds bilaterally CVS: Regular rate and rhythm, S1 and S2 present, no murmurs or gallops appreciated. ABDOMEN: Soft, non-tender. No signs of distention. No rebound no guarding, and no masses palpated. Bowel sounds are normal. EXTREMITIES: Bilateral LE edema 1+ NEURO: Alert and oriented x 3. No acute neurological deficits. Speech is normal and follows commands. SKIN: Dry and warm Triage Information Reviewed: Yes Vital Signs On Initial Exam: Initial Vitals Temp Pulse Resp BP Pulse Ox 99.3 F 85 22 163/79 93 12/27/18 11:44 12/27/18 11:44 12/27/18 11:44 12/27/18 11:44 12/27/18 11:44 Vital Signs Reviewed: Yes Diagnostics - Vital Signs Vital Signs Temp Pulse Resp BP Pulse Ox 12/27/18 11:44 99.3 F 85 22 163/79 93 - Laboratory Result Diagrams: 12/27/18 14:07 12/27/18 14:07 Lab Statement: Any lab studies that have been ordered have been reviewed, and results considered in the medical decision making process. - Radiology CXR Radiology Interpretation Completed By: Radiologist Summary of Radiographic Findings: NO EVIDENCE FOR ACUTE FINDING. Dr. Lang has reviewed this radiology report. - EKG 1233 Cardiac Rate: NL - 66 BPM EKG Rhythm: Atrial Fibrillation EKG Comparison: No Significant Change - Similar to EKG done on 05/27/2017 Summary of EKG Findings: Atrial fibrillation at 66 BPM, similar to EKG done on 05/27/2017 1215 Cardiac Rate: NL - 66 BPM EKG Rhythm: Atrial Fibrillation EKG Comparison: No Significant Change - Similar to EKG done on 05/27/2017 Summary of EKG Findings: Atrial fibrillation at 66 BPM, similar to EKG done on 05/27/2017 Re-Evaluation - Re-Evaluation First Eval Re-Evaluation Time: 15:41 Comment: Discussed results with patient. Patient will be discharged with dx of dyspnea. Patient understands and agrees with this plan. Course/Dx - Course Assessment/Plan: This patient is an 83-year-old female who presents to the emergency department with chief complaint of worsening shortness of breath. The patient reports that she has a atrial fibrillation for which she does not take any blood thinners and also CHF. Patient takes Lasix 40 mg in the morning however the symptoms of shortness of breath and getting worse. Patient denies any chest pain denies any weight gain. Blood work without any significant abnormality except for. 27, creatinine 1.05, alkaline phosphatase is 25, BNP is 268. Urinalysis is negative for UTI and chest x-ray shows no acute findings. In the ED course the patient has remained stable. In the ED course patient doesnt have any shortness of breath or she has no chest pain or any other complaint. Therefore, I discussed all my findings, test results with the patient and we will discharge the patient home with follow-up with Dr. Vasquez from cardiology and with her primary care physician. She was recommended to return to the emergency department she develops any other episodes of shortness of breath, chest pain or any other symptoms. Patient is hemodynamically stable alert and oriented 3. - Diagnoses Provider Diagnoses: Dyspnea Discharge - Sign-Out/Discharge Documenting (check all that apply): Patient Departure - Discharge Patient Received Moderate/Deep Sedation with Procedure: No - Discharge Plan Condition: Stable Disposition: HOME Patient Education Materials: Dyspnea (ED) Referrals: Yvonne Velasquez MD [Primary Care Provider] - 3 Days Sean Vasquez MD [Medical Doctor] - 3 Days Additional Instructions: Follow-up with your primary care provider in 3 days. RETURN THE ER FOR CHANGING OR WORSENING SYMPTOMS. - Billing Disposition and Condition Condition: STABLE Disposition: Home - Attestation Statements Document Initiated by Scribe: Yes Documenting Scribe: Zach Adan Provider For Whom Carla is Documenting (Include Credential): Sudhakar Lang MD Scribe Attestation: IZahc, scribed for Sudhakar Lang MD on 12/27/18 at 2137. Scribe Documentation Reviewed: Yes Provider Attestation: The documentation as recorded by the Zach cunningham accurately reflects the service I personally performed and the decisions made by me, Sudhakar Lang MD Status of Scribe Document: Viewed
[2018-12-27 12:26] LABS: Activated Partial Thrombo Time 29.1 seconds (26.0-36.3); INR 1.05 (0.82-1.09)
[2018-12-27 13:23] LABS: Urine Appearance Clear; Urine Bacteria Absent (Absent); Urine Bilirubin Negative (Negative); Urine Blood Negative (Negative); Urine Color Yellow; Urine Glucose Negative (Negative); Urine Ketones Negative (Negative); Urine Nitrite Negative (Negative); Urine Protein 2+(100 mg/dL) (Negative); Urine Red Blood Cell Trace(0-2/hpf) (Absent); Urine Specific Gravity 1.008 (1.010-1.030); Urine Squamous Epithelial Cell Present (Absent); Urine Urobilinogen Negative (Negative); Urine White Blood Cell Absent (Absent)
[2018-12-27 14:27] LABS: ABS Eosinophils 0.1 10^3/ul (0-0.6); ABS Monocytes 0.5 10^3/ul (0-0.8); ABS Neutrophils 3.9 10^3/ul (1.5-7.7); Eosinophil % 1.9 %; Hematocrit 41 % (35-47); Hemoglobin 13.6 g/dL (12.0-16.0); Lymphocyte % 18.3 %; Mean Corpuscular HGB Conc 33 g/dL (31-36); Mean Corpuscular Hemoglobin 32 pg (27-31); Mean Corpuscular Volume 97 fL (80-97); Mean Platelet Volume 7.1 fL (7.4-10.4); Nucleated Red Blood Cells % 0.1; Platelet Count 240 10^3/uL (150-450); Red Blood Count 4.21 10^6 /uL (3.70-4.87); Red Cell Distribution Width 14 % (10.5-15); White Blood Count 5.6 10^3/uL (3.5-10.8)
[2018-12-27 14:40] LABS: Troponin I 0.02 ng/mL (<0.04)
[2018-12-27 14:42] LABS: ALT 16 U/L (7-52); Albumin 3.9 g/dL (3.2-5.2); Alkaline Phosphatase 125 U/L (34-104); BUN/Creatinine Ratio 25.7 (8-20); Blood Urea Nitrogen 27 mg/dL (6-24); C Reactive Protein 29.16 mg/L (<8.01); CO2 Carbon Dioxide 27 mmol/L (22-32); Calcium 9.6 mg/dL (8.6-10.3); Chloride 101 mmol/L (101-111); Creatine Kinase 42 U/L (10-223); EGFR African American 60.7 (>60); EGFR Non-African American 50.2 (>60); Globulin 3.8 g/dL (2-4); Glucose 100 mg/dL (70-100); Sodium 137 mmol/L (135-145); Total Protein 7.7 g/dL (6.4-8.9)
[2018-12-27 15:03] LABS: Anion Gap 9 mmol/L (2-11)
[2018-12-27 15:59] VITALS: BP 158/94
== END 2018-12-27 15:58 | disposition home or self-care (01) ==
LOC: ED 11:39
DX: R06.00 Dyspnea, unspecified (principal); I48.91 Unspecified atrial fibrillation; I50.9 Heart failure, unspecified; I11.0 Hypertensive heart disease with heart failure; J45.909 Unspecified asthma, uncomplicated; Z85.3 Personal history of malignant neoplasm of breast; Z87.891 Personal history of nicotine dependence
CPT/HCPCS: 36415; 71046; 80053; 81003; 81015; 82550; 82553; 83880; 84484; 85025; 85610; 85730; 86140; 93005; 99283

== ENCOUNTER 2019-03-03 06:25 | Observation (INO) | payer MEDICARE ==
[2019-03-03] MEDS ORDERED: Labetalol IV* 5 MG/ML 20 ML VIAL IV PUSH ONE (06:45)
[2019-03-03] MEDS ORDERED: methylPREDNISolone 125 MG* 2 ML VIAL IV ONE (06:46)
[2019-03-03] MEDS ORDERED: Diltiazem TAB* 60 MG PO ONE (06:49)
[2019-03-03] MEDS ORDERED: Metoprolol Tartrate TAB* 25 MG PO ONE (06:49)
[2019-03-03] MEDS ORDERED: Aspirin 81 mg CHEW TAB* 81 MG TAB.CHEW PO ONE (06:50)
[2019-03-03] MEDS ORDERED: Albuterol/Ipratropium NEB.SOL* Albuterol 2.5 MG/Ipratropium 0.5 MG 3 ML INH ONE (06:50)
[2019-03-03 07:22] LABS: ABS Basophils 0.1 10^3/ul (0-0.2); ABS Eosinophils 0.1 10^3/ul (0-0.6); ABS Lymphocytes 0.9 10^3/ul (1.0-4.8); ABS Monocytes 0.4 10^3/ul (0-0.8); ABS Neutrophils 2.9 10^3/ul (1.5-7.7); Eosinophil % 1.5 %; Hematocrit 44 % (35-47); Lymphocyte % 21.3 %; Mean Corpuscular HGB Conc 34 g/dL (31-36); Mean Corpuscular Hemoglobin 33 pg (27-31); Mean Corpuscular Volume 96 fL (80-97); Mean Platelet Volume 7.3 fL (7.4-10.4); Nucleated Red Blood Cells % 0.2; Platelet Count 244 10^3/uL (150-450); Red Blood Count 4.55 10^6 /uL (3.70-4.87); Red Cell Distribution Width 14 % (10-15); White Blood Count 4.4 10^3/uL (3.5-10.8)
[2019-03-03] MEDS ORDERED: Diltiazem TAB* 30 MG PO ONE (07:53)
[2019-03-03] MEDS ORDERED: Furosemide IV* 10 MG/ML VIAL (40 MG) IV ONE ×2 (08:12→16:00)
[2019-03-03 08:20] LABS: Anion Gap 17 mmol/L (2-11); CO2 Carbon Dioxide 21 mmol/L (22-32); Calcium 9.8 mg/dL (8.6-10.3); Chloride 95 mmol/L (101-111); Potassium 4.7 mmol/L (3.5-5.0); Sodium 133 mmol/L (135-145)
[2019-03-03 09:16] LABS: C Reactive Protein 16.66 mg/L (<8.01); EGFR African American 57.5 (>60); EGFR Non-African American 47.6 (>60); Magnesium 1.4 mg/dL (1.9-2.7); Total Bilirubin 0.6 mg/dL (0.2-1.0); Total Protein 7.7 g/dL (6.4-8.9)
[2019-03-03] MEDS ORDERED: Iodixanol* (CONTRAST) 320 MG/ML 100 ML SDV IV ONE (09:34)
[2019-03-03] MEDS ORDERED: Magnesium Sulf 4 GM/100 ML IV* 4,000 MG/100 ML BAG IVPB ONE (09:50)
[2019-03-03 09:53] LABS: Albumin/Globulin Ratio 1.1 (1-3); Calcium 9.6 mg/dL (8.6-10.3); Globulin 3.7 g/dL (2-4); Potassium 4.4 mmol/L (3.5-5.0)
[2019-03-03] MEDS ORDERED: Levalbuterol HFA INHALER* 1 PUFF MDI INH SCH (11:00)
--- NOTE | 2019-03-03 11:36 | ED ---
Shortness of Breath - HPI Summary HPI Summary: Patient is an 83-year-old female with a history of chronic A. fib, CHF and hypertension and breast CA presenting to the ED with worsening shortness of breath over the course of 2 months. She states this became worse over the past week or so. Worse with ambulation, better with rest. She is unable to lie flat. She was diagnosed with CHF and she currently takes Lasix 40 mg daily. Her service desk lead, Dr. Vasquez increased her dose to 60 mg 2 months ago, however after taking this for approximately 1 week, she states she was unable to continue due to the frequent restaurant visits. She was unable to sleep. She states over this course of the past 2 months, her SOB has been worsening. She states she does not feel SOB at rest, but when ambulating, she becomes short of breath and is unable to complete tasks at home. She has to sit frequently to re -catch her breath. She does not use O2 at home. She continues to take diltiazem 240 mg as well as metoprolol 25 mg. Aspirin 81 mg. She did not take any of her medications this morning. - History of Current Complaint Chief Complaint: EDShortnessOfBreath Time Seen by Provider: 03/03/19 06:32 Hx Obtained From: Patient Onset/Duration: Sudden Onset Timing: Constant Current Severity: Moderate Dyspnea At: Rest Associated Signs & Symptoms: Negative - Risk Factors Pulmonary Embolism: Bedrest Cardiac: Hypertension, CHF Pseudomonas: Negative - Allergy/Home Medications Allergies/Adverse Reactions: Allergies Allergy/AdvReac Type Severity Reaction Status Date / Time ipratropium Allergy Unknown Verified 03/03/19 08:51 Reaction Details PMH/Surg Hx/FS Hx/Imm Hx Previously Healthy: Yes Endocrine/Hematology History: Denies: Hx Anticoagulant Therapy, Hx Diabetes Cardiovascular History: Reports: Hx Atrial Fibrillation, Hx Congestive Heart Failure, Hx Hypertension, Other Cardiovascular Problems/Disorders - Atrial fibrillation Respiratory History: Reports: Hx Asthma, Hx Pneumonia Denies: Hx Chronic Obstructive Pulmonary Disease (COPD), Other Respiratory Problems/Disorders GI History: Reports: Hx Ulcer - history of, 1996, Other GI Disorders History: Reports: Other Problems/Disorders - history of UTI in past years Denies: Hx Renal Disease Musculoskeletal History: Reports: Hx Arthritis, Other Musculoskeletal History - Hx: Sciatica Sensory History: Reports: Hx Cataracts Denies: Hx Contacts or Glasses, Hx Legally Blind, Hx Deafness, Hx Hearing Aid Opthamlomology History: Reports: Hx Cataracts Denies: Hx Contacts or Glasses, Hx Legally Blind Neurological History: Denies: Other Neuro Impairments/Disorders - Cancer History Cancer Type, Location and Year: breast cancer, remission Hx Chemotherapy: No Hx Radiation Therapy: Yes - 1995 - Surgical History Surgery Procedure, Year, and Place: BL BEN, ORIF R forearm , R lumpectomy, hystrectomy Hx Anesthesia Reactions: No - Immunization History Hx Pertussis Vaccination: No Immunizations Up to Date: Yes Infectious Disease History: No Infectious Disease History: Denies: Traveled Outside the [place] in Last 30 Days - Family History Known Family History: Positive: Diabetes - Brother, Other - Lung cancer father, CHF mother - Social History Occupation: Unemployed Lives: With Family Alcohol Use: Daily Alcohol Amount: 2 cocktails daily Hx Substance Use: No Substance Use Type: Reports: None Hx Tobacco Use: Yes Smoking Status (MU): Former Smoker Type: Cigarettes Have You Smoked in the Last Year: No Review of Systems Constitutional: Negative Negative: Fever, Chills, Fatigue, Skin Diaphoresis Negative: Dental Pain Negative: Palpitations, Chest Pain Positive: Shortness Of Breath. Negative: Cough Genitourinary: Negative Positive: no symptoms reported, see HPI Negative: Arthralgia, Myalgia Skin: Negative Neurological: Negative All Other Systems Reviewed And Are Negative: Yes Physical Exam Triage Information Reviewed: Yes Vital Signs On Initial Exam: Initial Vitals Temp Pulse Resp BP Pulse Ox 98.7 F 81 28 194/109 96 03/03/19 06:29 03/03/19 06:29 03/03/19 06:29 03/03/19 06:29 03/03/19 06:29 Vital Signs Reviewed: Yes Appearance: Positive: Well-Appearing, Well-Nourished Skin: Positive: Warm, Skin Color Reflects Adequate Perfusion Head/Face: Positive: Normal Head/Face Inspection Eyes: Positive: EOMI, MATT, Conjunctiva Clear Neck: Positive: Supple, No Lymphadenopathy Respiratory/Lung Sounds: Positive: Clear to Auscultation, Breath Sounds Present Cardiovascular: Positive: RRR, Pulses are Symmetrical in both Upper and Lower Extremities Musculoskeletal: Positive: Strength/ROM Intact Neurological: Positive: Sensory/Motor Intact, Alert, Oriented to Person Place, Time, Speech Normal Psychiatric: Positive: Affect/Mood Appropriate AVPU Assessment: Alert Diagnostics - Vital Signs Vital Signs Temp Pulse Resp BP Pulse Ox 03/03/19 10:00 69 23 91 03/03/19 09:27 69 27 146/76 91 03/03/19 09:00 61 26 92 03/03/19 08:56 63 25 154/83 90 03/03/19 08:27 70 25 160/105 96 03/03/19 08:00 21 03/03/19 07:56 73 30 173/82 96 03/03/19 07:48 81 27 180/100 95 03/03/19 07:26 77 20 179/103 100 03/03/19 07:20 16 03/03/19 07:00 26 03/03/19 06:33 80 32 194/109 95 03/03/19 06:32 75 29 95 03/03/19 06:29 98.7 F 81 28 194/109 96 - Laboratory Lab Results: Lab Results 03/03/19 03/03/19 03/03/19 Range/Units 07:13 07:13 07:13 WBC 4.4 (3.5-10.8) 10^3/uL RBC 4.55 (3.70-4.87) 10^6 /uL Hgb 15.0 (12.0-16.0) g/dL Hct 44 (35-47) % MCV 96 (80-97) fL MCH 33 H (27-31) pg MCHC 34 (31-36) g/dL RDW 14 (10-15) % Plt Count 244 (150-450) 10^3/uL MPV 7.3 L (7.4-10.4) fL Neut % (Auto) 65.9 % Lymph % (Auto) 21.3 % Pinal % (Auto) 9.8 % Eos % (Auto) 1.5 % Baso % (Auto) 1.5 % Absolute Neuts (auto) 2.9 (1.5-7.7) 10^3/ul Absolute Lymphs (auto) 0.9 L (1.0-4.8) 10^3/ul Absolute Monos (auto) 0.4 (0-0.8) 10^3/ul Absolute Eos (auto) 0.1 (0-0.6) 10^3/ul Absolute Basos (auto) 0.1 (0-0.2) 10^3/ul Absolute Nucleated RBC 0.0 10^3/ul Nucleated RBC % 0.2 D-Dimer, Quantitative 319 H (Less Than 230) ng/mL Sodium 133 L (135-145) mmol/L Potassium 4.7 (3.5-5.0) mmol/L Chloride 95 L (101-111) mmol/L Carbon Dioxide 21 L (22-32) mmol/L Anion Gap 17 H (2-11) mmol/L BUN TNP Creatinine TNP Est GFR ( Amer) TNP Est GFR (Non-Af Amer) TNP BUN/Creatinine Ratio TNP Glucose TNP Lactic Acid (0.5-2.0) mmol/L Calcium 9.8 (8.6-10.3) mg/dL Magnesium TNP Total Bilirubin TNP AST TNP ALT TNP Alkaline Phosphatase TNP Troponin I 0.00 (<0.04) ng/mL C-Reactive Protein TNP B-Natriuretic Peptide (<=100) pg/mL Total Protein TNP Albumin 4.0 (3.2-5.2) g/dL Globulin TNP Albumin/Globulin Ratio TNP 03/03/19 03/03/19 03/03/19 Range/Units 07:13 07:13 08:37 WBC (3.5-10.8) 10^3/uL RBC (3.70-4.87) 10^6 /uL Hgb (12.0-16.0) g/dL Hct (35-47) % MCV (80-97) fL MCH (27-31) pg MCHC (31-36) g/dL RDW (10-15) % Plt Count (150-450) 10^3/uL MPV (7.4-10.4) fL Neut % (Auto) % Lymph % (Auto) % Pinal % (Auto) % Eos % (Auto) % Baso % (Auto) % Absolute Neuts (auto) (1.5-7.7) 10^3/ul Absolute Lymphs (auto) (1.0-4.8) 10^3/ul Absolute Monos (auto) (0-0.8) 10^3/ul Absolute Eos (auto) (0-0.6) 10^3/ul Absolute Basos (auto) (0-0.2) 10^3/ul Absolute Nucleated RBC 10^3/ul Nucleated RBC % D-Dimer, Quantitative (Less Than 230) ng/mL Sodium 130 L (135-145) mmol/L Potassium 4.4 (3.5-5.0) mmol/L Chloride 94 L (101-111) mmol/L Carbon Dioxide 27 (22-32) mmol/L Anion Gap 9 (2-11) mmol/L BUN 28 H Creatinine 1.10 H Est GFR ( Amer) 57.5 Est GFR (Non-Af Amer) 47.6 BUN/Creatinine Ratio 25 H Glucose 106 H Lactic Acid 0.8 (0.5-2.0) mmol/L Calcium 9.6 (8.6-10.3) mg/dL Magnesium 1.4 L Total Bilirubin 0.60 AST 22 ALT 16 Alkaline Phosphatase 122 H Troponin I (<0.04) ng/mL C-Reactive Protein 16.66 H B-Natriuretic Peptide 280 H (<=100) pg/mL Total Protein 7.7 Albumin 4.0 (3.2-5.2) g/dL Globulin 3.7 Albumin/Globulin Ratio 1.1 Result Diagrams: 03/03/19 07:13 03/03/19 08:37 Lab Statement: Any lab studies that have been ordered have been reviewed, and results considered in the medical decision making process. Course/Dx - Course Course Of Treatment: Patient is an 83-year-old female with a history of chronic A. fib, CHF and hypertension and breast CA presenting to the ED with worsening shortness of breath over the course of 2 months. She states this became worse over the past week or so. Worse with ambulation, better with rest. She is unable to lie flat. She was diagnosed with CHF and she currently takes Lasix 40 mg daily. Her service desk lead, Dr. Vasquez increased her dose to 60 mg 2 months ago, however after taking this for approximately 1 week, she states she was unable to continue due to the frequent restaurant visits. She was unable to sleep. She states over this course of the past 2 months, her SOB has been worsening. She states she does not feel SOB at rest, but when ambulating, she becomes short of breath and is unable to complete tasks at home. She has to sit frequently to re-catch her breath. She does not use O2 at home. She continues to take diltiazem 240 mg as well as metoprolol 25 mg. Aspirin 81 mg. She did not take any of her medications this morning. She arrives by EMS on 4 L with a sat of 95%. This was titrated down to 2 L and her sat was 92%. When she was taken off O2, her sat was between 86 and 88%. Dr. Eason, hospitalist called who agrees to admit patient for further workup. D-dimer obtained which is 319. CTA ordered and is pending. BNP is 280 which is consistent with her previous visits. During her visit she was given 125 methylprednisolone, her at home medications of metoprolol, diltiazem 90 mg and aspirin 81 mg. She was given 1 DuoNeb as well as Lasix 40 mg IV. - Diagnoses Differential Diagnosis/HQI/PQRI: Positive: CHF, COPD Exacerbation, Pulmonary Embolism, Pulmonary Edema Provider Diagnoses: Shortness of breath - Physician Notifications Discussed Care of Patient With: Yanna Eason Instructed by Provider To: Admit As Inpatient - Critical Care Time Critical Care Time: 30-74 min Discharge - Sign-Out/Discharge Documenting (check all that apply): Patient Departure All imaging exams completed and their final reports reviewed: Yes Patient Received Moderate/Deep Sedation with Procedure: No - Discharge Plan Condition: Fair Disposition: ADMITTED TO [facility] - Billing Disposition and Condition Condition: FAIR Disposition: Admitted to [facility]
[2019-03-03] MEDS ORDERED: Heparin VIAL(*) 5000 UNITS/ML VIAL (FIVE THOUSAND) SUBCUT SCH (14:00)
[2019-03-03] MEDS ORDERED: Levalbuterol HFA INHALER* 1 PUFF MDI INH PRN (14:09)
--- NOTE | 2019-03-03 15:18 | HP ---
CC: Yvonne Velasquez MD; Sean Vasquez MD * HISTORY AND PHYSICAL: DATE OF ADMISSION: 03/03/19 PRIMARY CARE PROVIDER: Yvonne Velasquez MD. PROCESS OWNER: Sean Vasquez MD. ATTENDING PHYSICIAN: Yanna Chambers MD * (dictated by LUIS ENRIQUE Allison). CHIEF COMPLAINT: Shortness of breath. HISTORY OF PRESENT ILLNESS: Ms. Dangelo is an 83-year-old female with a past medical history of atrial fibrillation, chronic kidney disease, hypertension, asthma who presents to the hospital today with complaints of shortness of breath. She has had decrease in activity for the last approximately 6 to 8 months. She states that prior to that she was able to walk comfortably, but now she has shortness of breath with any activity including walking around the house. She uses a walker to ambulate. She had an echo in May 2018, which revealed an ejection fraction of 50% to 55%. She is being treated with Lasix 40 mg daily. She went to see Dr. Vasquez in December 2018. Due to her progressive worsening of shortness of breath, he suggested increasing Lasix to 60. The patient states that she alternated 60 mg and 40 mg for 5 to 6 days, but then went back to her 40 mg dose as she was unable to tolerate her increase in nightly urination. Again, she has had worsening shortness of breath. She has PND and sleeps on an adjustable bed with head of bed at an incline and one pillow. She has orthopnea. She notes she feels a "thumping" in the chest with her shortness of breath. She has had lower extremity edema, which has been worsening. She complains of chest tightness. She denies dizziness or lightheadedness. She denies cough or fever. She notes that she is taking her medications as prescribed, although notes that she takes Lasix 40, instead of Lasix [address] Vasquez. She denies chest pain. She denies changes in eating or drinking habits. She tries to adhere to a healthy diet with low sodium. While in the emergency department, the patient received full workup which included a chest x-ray that showed pulmonary vascular congestion and EKG that revealed atrial fibrillation. She has a CTA of the chest ordered and pending. Blood work was ordered. She received medications: DuoNeb, aspirin, diltiazem, furosemide 40, Solu-Medrol, metoprolol. The hospitalist team was asked to evaluate the patient for admission. PAST MEDICAL HISTORY: 1. Atrial fibrillation - not on anticoagulation due to history of GI bleed, on rivaroxaban. 2. Chronic kidney disease. 3. Hypertension. 4. Asthma. 5. Arthritis. 6. History of right breast cancer. 7. GERD. PAST SURGICAL HISTORY: Right breast lumpectomy, hysterectomy, ORIF of right forearm, bilateral cataracts, bilateral total hip arthroplasty. HOME MEDICATIONS: 1. Acetaminophen 650 mg p.o. q.6 hours p.r.n. for pain. 2. Aspirin 81 mg p.o. daily. 3. Diltiazem HCL 240 mg p.o. q.a.m. 4. Furosemide 40 mg p.o. q.a.m. 5. Levalbuterol HFA inhaler 2 puff inhalation q.6 hours p.r.n. for shortness of breath. 6. Metoprolol tartrate 25 mg p.o. b.i.d. 7. Nystatin cream 1 application topically b.i.d. 8. Omeprazole 20 mg p.o. b.i.d. 9. Potassium 100 mg p.o. q.a.m. ALLERGIES: IPRATROPIUM, urticaria. FAMILY HISTORY: Mother: CHF. Father: Lung cancer. Brother, sister: Diabetes mellitus. Negative for CVA or OK. SOCIAL HISTORY: The patient is a former smoker; she quit in 1973. Prior to that, she smoked for approximately 12 years 1 pack per day. She has 1 to 2 drinks of alcohol per day. She is a retired medical lab director. She lives alone. Her daughter lives next door to her. In the event that she is unable to make her own medical decisions, she has appointed her son, Tyrone Dangelo, or her daughter , Krystyna Carlos, to be her surrogate decision makers. REVIEW OF SYSTEMS: A 10-point review of systems was performed and all the pertinent positives and negatives are in the HPI. All other systems are negative. PHYSICAL EXAMINATION GENERAL: Ms. Dangelo is a well-developed, well-nourished, obese, elderly white woman who is sitting up in bed. She appears short of breath, but in no acute respiratory distress. She is unable to talk in full sentences. She is requiring 2 L of oxygen at the time. VITAL SIGNS: Temperature 98.4; temporal, heart rate 55, respiratory rate 16, oxygen saturation 91% on 2 L, blood pressure 146/76. HEENT: PERRL, EOMI. Nonicteric sclerae. Hearing is grossly intact. Oral mucous membranes are moist. There are no lesions. The pharynx is clear. RESPIRATORY: Symmetrical chest expansion. The patient is using accessory muscles for breathing. There are faint bibasilar rales. Breath sounds are diminished. There are no wheezes or rubs. CARDIOVASCULAR: Regular rate, irregular rhythm. S1, S2 present without murmurs , rubs, clicks, or gallops. There is no JVD. ABDOMEN: Obese. Bowel sounds noted in all quadrants. The abdomen is soft. There is no tenderness to palpation. There is no palpable hepatosplenomegaly. EXTREMITIES: Skin is warm. There is no clubbing or cyanosis. The patient has bilateral lower extremity 1+ pitting edema. Radial pulses are palpable. Pedal pulses faintly palpable. NEUROLOGIC: The patient is awake. She is alert and oriented x3. Cranial nerves are grossly intact. She is able to move all of her extremities with motor strength of 5/5 in bilateral upper and lower extremities. DIAGNOSTIC STUDIES/LAB DATA: Chest x-ray reveals pulmonary vascular congestion. EKG reveals atrial fibrillation. CBC without gross abnormality. D-dimer 319. Sodium 130, chloride 95, BUN 28, creatinine 1.10, magnesium 1.4, alk phos 122. CRP 16.66, BNP 280. ASSESSMENT AND PLAN: Ms. Dangelo is an 83-year-old female with past medical history of atrial fibrillation, chronic kidney disease, hypertension, and asthma who presented to the ER today with complaints of shortness of breath. She is found to have pulmonary vascular congestion and bilateral lower extremity edema. The patient will be admitted to observation for: 1. Shortness of breath. The patient has orthopnea, PND, oxygen requirements, and swelling in bilateral lower extremity. She denies cough and fever. Her last echocardiogram was 06/14/18 and this revealed ejection fraction of 50% to 55%. She did have an elevated D-dimer. She will be worked up for pulmonary embolism with a CTA ordered and pending. At this time, there is no suspicion for pneumonia as the patient denies cough, fever, and chest x-ray is negative for pneumonia. High on the differential is congestive heart failure. The patient received furosemide 40 IV this morning in the ER. She will receive another dose at 1600 and 1 dose in the morning. A repeat echocardiogram has been ordered for tomorrow morning. Is and Os and daily weights have been ordered. Low-sodium, heart-healthy diet is ordered. 2. Urinary frequency. The patient complains of urinary frequency, especially at night. She notes that she takes her Lasix in the morning. UA has been ordered. 3. Hypomagnesemia. The patient had magnesium of 1.4 noted in the ER. The patient will receive 4 g IV. We will recheck in the a.m. 4. Atrial fibrillation. The patient is not on anticoagulation due to history of GI bleed, on rivaroxaban. Continue home medications of diltiazem, metoprolol tartrate, aspirin. 5. Chronic kidney disease. The patient's current creatinine is 1.10, which is within her baseline. We will continue to monitor. 6. Hypertension. Continue home medications. 7. Asthma. Continue levalbuterol HFA inhaler p.r.n. 8. Gastroesophageal reflux disease. Continue omeprazole 20 b.i.d. 9. FEN. Heart-healthy diet with low sodium. 10. DVT Risk Assessment. According to the DVT Risk Assessment, the patient scores 4, placing her at high risk. She was offered heparin for prophylaxis, but refuses, due to history of GI bleed. 12. Code status. Full code. TIME SPENT: Approximately 60 minutes were spent on this admission; greater than half of that time was spent with the patient and her children obtaining history, performing physical, and reviewing the plan of care. The case has been reviewed with my attending, Dr. Chambers, who is in agreement with the plan of care. LUIS ENRIQUE ZAYAS [id number]/[facility] #: [id number] MTDD
--- NOTE | 2019-03-03 16:30 | ECHO ---
*[facility]* [place] [address] Fax #: [phone] Transthoracic Echocardiogram Patient: Guerita Dangelo : 1935 Study Date: 03/03/2019 Age: 83 Gender: F HR: 83 bpm Height: 64 in /162.6 cm BSA: 2.04 m^2 Weight: 219.5 lb /99.8 kg BMI: 37.8 kg/m^2 *Classroom Teacher: * Mari Arango RDCS *Referring Physician: * Ruby Patricia *Reading Physician: * Sean Vasquez MD Indications: SOB. History: Atrial fibrillation. Congestive heart failure. Risk factors: Former tobacco use. Hypertension. Obese. Conclusions Summary: 1. Left ventricle: There is mild concentric hypertrophy. Systolic function is mildly reduced. The estimated ejection fraction is 45-50%. Although no diagnostic regional wall motion abnormality is identified, this possibility cannot be completely excluded on the basis of this study. 2. Ventricular septum: There is septal flattening of the interventricular septum consistent with RV volume or pressure overload. 3. Left atrium: The atrium is severely dilated. 4. Mitral valve: There is mild to moderate regurgitation. 5. Aortic valve: There is no evidence of stenosis. There is no significant regurgitation. 6. Tricuspid valve: There is moderate-severe regurgitation. 7. Pulmonary arteries: Systolic pressure is moderately increased. 8. Compared to study of 06/16/18, there is little change. Study data: Transthoracic echocardiogram. Procedure: Transthoracic echocardiography was performed. Image quality was poor. The study was technically limited due to body habitus. Patient refused Definity. Complete 2D, spectral Doppler, and color flow Doppler. Location: Bedside. Patient status: Inpatient. Patient room number: 443-2. Rhythm: Atrial fibrillation. Findings Left ventricle: Poorly visualized. The cavity size is normal. There is mild concentric hypertrophy. Systolic function is mildly reduced. The estimated ejection fraction is 45-50%. Although no diagnostic regional wall motion abnormality is identified, this possibility cannot be completely excluded on the basis of this study. Left ventricular diastolic function parameters are indeterminate. Right ventricle: Poorly visualized. The cavity size is mildly to moderately dilated. Systolic function is mildly reduced. Systolic pressure is moderately increased. Ventricular septum: There is septal flattening of the interventricular septum consistent with RV volume or pressure overload. Left atrium: The atrium is severely dilated. Right atrium: The atrium is severely dilated. Mitral valve: The annulus is calcified. The leaflets are mildly thickened. There is no evidence of stenosis. There is mild to moderate regurgitation. Aortic valve: The valve is trileaflet. The leaflets are mildly thickened. There is no evidence of stenosis. There is no significant regurgitation. Tricuspid valve: The leaflets are normal thickness. There is no evidence of stenosis. There is moderate-severe regurgitation. Pulmonic valve: Not well visualized. There is no evidence of stenosis. There is mild regurgitation. Aorta: Aortic root: The aortic root is appears normal. Ascending aorta: The ascending aorta is appears normal. Aortic arch: The aortic arch is not visualized. Pericardium: There is no significant pericardial effusion. Pulmonary arteries: Poorly visualized. Systolic pressure is moderately increased. Systemic veins: Inferior vena cava: The vessel is dilated. The respirophasic diameter changes are in the normal range (>= 50%). Measurements Left ventricle Value Ref Aortic valve Value Ref SUSI, LAX 4.8 cm 3.8 - 5.2 Eric diam, ED 1.9 cm ----- ESD, LAX 3.5 cm 2.2 - 3.5 Peak v, S 1.62 m/sec ----- FS, LAX 27 % 27 - 45 VTI, S 30.7 cm ----- PW, ED, LAX (H) 1.2 cm 0.6 - 0.9 Mean grad, S 4.0 mm Hg ----- FS 27 % 27 - 45 Peak grad, S 10.0 mm Hg ----- PW, ED (H) 1.2 cm 0.6 - 0.9 LVOT/AV, VTI ratio 0.62 ----- E', lat eric, TDI 13.2 cm/sec >=10.0 E/e', lat eric, 8 Mitral valve Value Ref TDI Peak E 1.05 m/sec ----- E', med eric, TDI (L) 6.4 cm/sec >=7.0 Peak A 0 m/sec --- -- E/e', med eric, 16 Decel time 114 ms ----- TDI Peak grad, D 4.4 mm Hg ----- E', avg, TDI 9.8 cm/sec Peak E/A ratio 1050 ----- E/e', avg, TDI 11 <=14 Pulmonic valve Value Ref LVOT Value Ref Peak v, S 0.98 m/sec ----- Peak mary, S 1.02 m/sec Peak grad, S 4.0 mm Hg ----- VTI, S 19.0 cm Mean grad, S 2 mm Hg Tricuspid valve Value Ref TR peak v (H) 3.3 m/sec <=2.8 Ventricular septum Value Ref Peak RV-RA grad, S 44 mm Hg ----- IVS, ED (H) 1.1 cm 0.6 - 0.9 Aortic root Value Ref Right ventricle Value Ref Root diam 1.9 cm <4.2 SUSI, LAX 4.0 cm SUSI minor ax, A4C (H) 4.8 cm 1.9 - 3.5 Ascending aorta Value Ref mid AAo AP diam, S 1.9 cm ----- Pressure, S 52 mm Hg Decending aorta Value Ref Left atrium Value Ref José peak mary 0.62 m/sec ----- AP dim, ES (H) 4.80 cm 2.70 - 3.80 Pulmonary artery Value Ref ML dim, A4C 5.6 cm Pressure, S 48.0 mm Hg ----- SI dim, A4C 7.8 cm Vol/bsa, ES, 1-p (H) 66 ml/m^2 11 - 40 Inferior vena cava Value Ref A4C Diam 2.9 cm ----- Vol/bsa, ES, A/L (H) 73 ml/m^2 16 - 34 Right atrium Value Ref SI dim, ES (H) 7.6 cm 3.4 - 5.3 ML dim, ES, A4C (H) 5.3 cm 2.6 - 4.4 SI dim, ES, A4C (H) 7.6 cm 3.4 - 5.3 SI dim/bsa, ES, (H) 3.7 cm/m^2 1.9 - 3.1 A4C Estimated RAP 8 mm Hg Legend: (L) and (H) abhay values outside specified reference range. Prepared and electronically signed by Sean Vasquez MD 03/03/2019 16:12
[2019-03-03 17:34] LABS: Urine Appearance Clear; Urine Bacteria Absent (Absent); Urine Bilirubin Negative (Negative); Urine Blood Negative (Negative); Urine Color Straw; Urine Glucose Negative (Negative); Urine Ketones Negative (Negative); Urine Nitrite Negative (Negative); Urine Protein 2+(100 mg/dL) (Negative); Urine Red Blood Cell Trace(0-2/hpf) (Absent); Urine Specific Gravity 1.013 (1.010-1.030); Urine Squamous Epithelial Cell Present (Absent); Urine Urobilinogen Negative (Negative); Urine White Blood Cell Trace(0-5/hpf) (Absent)
[2019-03-03] MEDS: Pantoprazole TAB * 40 MG TAB PO SCH (21:46)
[2019-03-03] MEDS: Acetaminophen TAB* 325 MG PO PRN (21:46)
[2019-03-03] MEDS: Metoprolol Tartrate TAB* 25 MG PO SCH (21:46)
[2019-03-03] MEDS: Nystatin CREAM* 15 GM TUBE TOPICAL SCH (22:02)
[2019-03-04 07:04] LABS: Calcium 9.3 mg/dL (8.6-10.3); EGFR African American 59.4 (>60); EGFR Non-African American 49.1 (>60); Magnesium 1.8 mg/dL (1.9-2.7)
[2019-03-04] MEDS ORDERED: Magnesium Sulfate 2 GM IV* 2 GM/50 ML BAG IVPB ONE (08:16)
[2019-03-04] MEDS ORDERED: Furosemide IV* 10 MG/ML VIAL (40 MG) IV ONE ×2 (09:00→16:00)
[2019-03-04] MEDS: Diltiazem CD CAP* 240 MG PO SCH (09:56)
[2019-03-04] MEDS: Pantoprazole TAB * 40 MG TAB PO SCH ×2 (09:56→21:44)
[2019-03-04] MEDS: Metoprolol Tartrate TAB* 25 MG PO SCH ×2 (09:56→21:44)
[2019-03-04] MEDS: Aspirin EC TAB* 81 MG TAB.EC PO SCH (09:56)
[2019-03-04] MEDS: Nystatin CREAM* 15 GM TUBE TOPICAL SCH ×2 (09:58→21:18)
[2019-03-04] MEDS: Acetaminophen TAB* 325 MG PO PRN (12:08)
--- NOTE | 2019-03-04 13:19 | PN ---
Subjective Date of Service: 03/04/19 Interval History: Resting in bed on assessment with daughter at bedside. Reports breathing has improved since admission. Daughter reports this is the best her breathing has been in about 2 weeks. Patient reports her increase work of breathing and LE edema has been progressively getting worse over the past several weeks. She reports yesterday morning it was the worst it has been therefore she came to the ED. Patient denies chest pain or pressure. She reports occasional epigastric palpitation and describes it like a "baby kicking". She continues to have sob, but again reports it is improved. Per nursing patient has increased work of breathing with ambulation and required increase in O2 with ambulation. Denies dizziness, visual changes, near syncope, abd pain, cough, fever, chills. Objective Active Medications: Acetaminophen (Tylenol Tab*) 650 mg PO Q6H PRN PRN Reason: FEVER/PAIN Last Admin: 03/04/19 12:08 Dose: 650 mg Aspirin (Aspirin Ec Tab*) 81 mg PO DAILY [facility] Last Admin: 03/04/19 09:56 Dose: 81 mg Diltiazem HCl (Cardizem Cd Cap*) 240 mg PO QAM [facility] Last Admin: 03/04/19 09:56 Dose: 240 mg Levalbuterol HCl (Xopenex Hfa Inhaler*) 2 puff INH Q4H PRN PRN Reason: SOB/WHEEZING Metoprolol Tartrate (Lopressor Tab*) 25 mg PO BID [facility] Last Admin: 03/04/19 09:56 Dose: 25 mg Nystatin (Nystatin Cream*) 1 applic TOPICAL BID [facility] Last Admin: 03/04/19 09:58 Dose: Not Given Pantoprazole Sodium (Protonix Tab*) 40 mg PO BID [facility] Last Admin: 03/04/19 09:56 Dose: 40 mg Vital Signs - 8 hr 03/04/19 08:00 Respiratory 20 Rate Oxygen Devices in Use Now: Nasal Cannula Appearance: NAD Eyes: No Scleral Icterus Ears/Nose/Mouth/Throat: Clear Oropharnyx, Mucous Membranes Moist Neck: NL Appearance and Movements; NL JVP Respiratory: Symmetrical Chest Expansion and Respiratory Effort, - - Slight crackles at bases. Slight dyspnea noted with talking. Cardiovascular: NL Sounds; No Murmurs; No JVD, - - Afib. Bilateral pitting +1 edema. Abdominal: NL Sounds; No Tenderness; No Distention Lymphatic: No Cervical Adenopathy Extremities: No Clubbing, Cyanosis Skin: No Rash or Ulcers Neurological: Alert and Oriented x 3, NL Muscle Strength and Tone Nutrition: Taking PO's Result Diagrams: 03/03/19 07:13 03/04/19 06:20 Additional Lab and Data: Laboratory Results - last 24 hr 03/03/19 03/04/19 17:12 06:20 Sodium 135 Potassium 4.0 Chloride 95 L Carbon Dioxide 34 H Anion Gap 6 BUN 31 H Creatinine 1.07 H Est GFR ( Amer) 59.4 Est GFR (Non-Af Amer) 49.1 BUN/Creatinine Ratio 29.0 H Glucose 154 H Calcium 9.3 Magnesium 1.8 L Urine Color Straw Urine Appearance Clear Urine pH 5.0 Ur Specific [place] 1.013 Urine Protein 2+(100 mg/dl) A Urine Ketones Negative Urine Blood Negative Urine Nitrate Negative Urine Bilirubin Negative Urine Urobilinogen Negative Ur Leukocyte Esterase Negative Urine WBC (Auto) Trace(0-5/hpf) Urine RBC (Auto) Trace(0-2/hpf) Ur Squamous Epith Cells Present A Urine Bacteria Absent Urine Glucose Negative Microbiology and Other Data: . Assess/Plan/Problems-Billing Assessment: 83 yr old female with pmh of afib, ckd, htn, asthma, arthritis, breast ca, gerd ; who presented to the ED with complaints of sob and edema. - Patient Problems (1) Shortness of breath Comment: - Suspected secondary to acute on chronic congestive heart failure - Reports sob has improved since admission. - Noted to be slightly dysneic with talking - Currently requiring supplemental O2 to maintain saturation. - Ambulatory O2 ordered (2) Acute on chronic heart failure Comment: - BMP 280 which is near patient's baseline - Shortness of breath and edema. - Shortness of breath improving with lasix and supplemental O2 - Repeat echo revealed EF of 45 to 50% which is only slight decreased from previous echo. No other changed noted. - Cont strict I & O and Daily weight. - Received 2 doses of IV Lasix in ED, 1 dose last evening, and 1 dose this morning. Will ordered additional dose this evening. (3) Hypomagnesemia Comment: - Mildly low at 1.8. Was 1.4 in ED and received replacement. - Replaced ordered this morning, but patient refused as she had GI side effects last evening from replacement received in ED (4) Hypertension Comment: - Cont Metoprolol and Cardizem (5) Asthma Comment: - Cont home rescue inhaler (6) Atrial fibrillation Comment: - Continue ASA, diltiazem, and Metoprolol - Not on AC as she had GI bleed on rivaroxaban (7) CKD (chronic kidney disease) stage 3, GFR 30-59 ml/min Comment: - Creatinine 1.07 which is near baseline (8) DVT prophylaxis Comment: - High risk - Refused subq Heparin Status and Disposition: OBV. Cont IV diuresis. Attending: Darline Dawkins
[2019-03-04] MEDS ORDERED: Levalbuterol HFA INHALER* 1 PUFF MDI INH PRN (13:29)
[2019-03-05 06:14] LABS: Calcium 9.5 mg/dL (8.6-10.3); EGFR African American 54.1 (>60); EGFR Non-African American 44.7 (>60); Potassium 3.7 mmol/L (3.5-5.0)
[2019-03-05 07:45] LABS: Magnesium 1.7 mg/dL (1.9-2.7)
[2019-03-05] MEDS: Diltiazem CD CAP* 240 MG PO SCH (09:40)
[2019-03-05] MEDS: Nystatin CREAM* 15 GM TUBE TOPICAL SCH (09:40)
[2019-03-05] MEDS: Aspirin EC TAB* 81 MG TAB.EC PO SCH (09:40)
[2019-03-05] MEDS: Metoprolol Tartrate TAB* 25 MG PO SCH (09:40)
[2019-03-05] MEDS: Pantoprazole TAB * 40 MG TAB PO SCH (09:40)
[2019-03-05] MEDS ORDERED: Furosemide TAB* 40 MG PO ONE (10:21)
[2019-03-05 12:10] VITALS: BP 144/75
--- NOTE | 2019-03-05 22:30 | DS ---
CC: Dr. Velasquez; Dr. Sean Vasquez * DISCHARGE SUMMARY: DATE OF ADMISSION: 03/03/19. DATE OF DISCHARGE: 03/05/19. PRIMARY CARE PROVIDER: Dr. Velasquez. STREET CLEANING EQUIPMENT OPERATOR: Dr. Sean Vasquez. ATTENDING PHYSICIAN: Dr. Dawkins * (dictated by Sammy Saul NP). PRIMARY DIAGNOSES: 1. Shortness of breath. 2. Acute on chronic heart failure. 3. Hypomagnesemia. 4. Hypertension. 5. Asthma. 6. Atrial fibrillation. 7. Chronic kidney disease. 8. Gastroesophageal reflux disease. STUDIES WHILE IN THE HOSPITAL: EKG: Impression: Atrial fibrillation, rate 61 to 84. Chest x-ray: Impression: Pulmonary vascular congestion. Chest/thoracic CTA: Impression: No pulmonary artery filling defect to suggest pulmonary embolism. Enlargement of pulmonary artery suggested pulmonary arterial hypertension, atherosclerosis, cardiomegaly. Transthoracic echo: Impression: Left ventricle: There is mild concentric hypertrophy. Systolic function is mildly reduced. The estimated ejection fraction is 45% to 50% , although no diagnostic regional wall motion abnormality is identified. This possibly cannot be completely excluded on the basis of study. Ventricular septum: There is septal flattening of the intraventricular system consistent with RV volume pressure overload. Left atrium: The atrium is severely dilated. Mitral valve: There is mild to moderate regurgitation. Aortic valve: There is no evidence of stenosis. There is no significant regurgitation. Tricuspid valve: There is moderate to severe regurgitation. Pulmonary arteries: Systolic pressure is mildly increased. Compared to study of 06/16/18, there is little change. Repeat chest x-ray on 03/05/19. Impression: Pulmonary vascular congestion. DISCHARGE HOME MEDICATIONS: Continued home medications: 1. Acetaminophen 650 mg p.o. q.6 hours p.r.n. pain. 2. Aspirin 81 mg p.o. daily. 3. Diltiazem HCl 240 mg p.o. q.a.m. 4. Levalbuterol HFA inhaler 2 puffs inhalation q. 6 hours p.r.n. shortness of breath. 5. Metoprolol tartrate 25 mg p.o. b.i.d. 6. Nystatin cream 1 application topically b.i.d. 7. Omeprazole 20 mg p.o. b.i.d. 8. Potassium 100 mg p.o. q.a.m. Changed home medications: The patient reports she has been taking furosemide 40 mg p.o. q.a.m., but was instructed by Dr. Vasquez to increase to 60 to see how this affects breathing and edema. She reports that she was given leeway on how many days a week to do this, but had not been compliant as the initial increase to 60 caused her to urinate too frequently. I have encouraged the patient increase to the dose recommended by Dr. Vasquez at her last followup which is 60 mg p.o. q.a.m. Discontinued home medications: No home medications discontinued. New home medications: No new home medications. HISTORY OF PRESENT ILLNESS/HOSPITAL COURSE: Ms. Dangelo is a 83-year-old female with a past medical history significant for atrial fibrillation, chronic kidney disease, hypertension, asthma, arthritis, GERD, who presented to the emergency department on 03/03/19 with complaints of shortness of breath. Please see history and physical dictated by LUIS ENRIQUE Allison for complete summary of the events leading up to this hospitalization, but in short while in the emergency room, the patient was noted to have pulmonary vascular congestion on her x-ray. This finding in addition with reports of orthopnea, PND, oxygen requirements and swelling in bilateral extremities, the patient was admitted for further evaluation and treatment. While admitted, the patient had CTA of the chest as mentioned above, which had no finding of pulmonary embolism. Therefore, it was suspected that the patient's symptoms were related to congestive heart failure. The patient received IV diuresis in the form of Lasix and has significantly improved since admission. The patient has improved as evidenced by she no longer has dyspnea noted with talking. Son and daughter report she is at or better than her baseline breathing. The patient corroborates this statement. It should be noted that the patient also reports significant urine output, although this was not captured and recorded by the nursing staff. She also reports the edema has improved and I agree with this statement. It should also be noted that the patient's weight is incorrect in the computer for today as she reports the nursing stated the bed was broken. The patient is stable for discharge home. Vital Signs: Temperature 98.3, HR 81, RR 18, O2 saturation 96% on 2 L, BP 144/ 75. REVIEW OF SYSTEMS: The patient denies shortness of breath, chest pain, palpitations, fever, chill, cough, nausea, vomiting, diarrhea. A 14-point review of systems was completed and all others were negative. PHYSICAL EXAMINATION: General: Ms. Dangelo is an 83-year-old female who is sitting in the recliner. Appears to be in no acute distress. Appears stated age. HEENT: EOMs intact. PERRLA. Oral mucosa is moist without lesion. Posterior oropharynx is clear. Neck: Supple. No lymphadenopathy. Cardiac: S1 and S2 present. Irregular rhythm. Regular rate. No murmurs, rubs or gallops. Respiratory: Lungs are clear to auscultation. No wheezes, rhonchi or rubs. Good aeration. Abdomen: Soft and nontender. Bowel sounds normoactive. Extremities: The patient has mild bilateral lower extremity edema, which is improved from yesterday when she had 1+ pitting edema. No clubbing or cyanosis. Pedal pulses are 2+ bilaterally. Musculoskeletal: No pain or deformities. Skin: Grossly intact. Neuro: Neuro exam is grossly intact. No focal deficits or weakness. DIAGNOSTIC STUDIES/LABORATORY DATA: WBC 4.5, hemoglobin 15, hematocrit 44, platelets 244,000. Sodium 137, potassium 3.7, chloride 97, carbon dioxide 36, BUN 36, creatinine 1.16, glucose 105, magnesium 1.7. DISCHARGE PLAN/FOLLOWUP: 1. Shortness of breath: We suspect the patient's shortness of breath is secondary to acute on chronic congestive heart failure. The patient's shortness of breath has improved since admission. The patient was noted to be slightly dyspneic with talking yesterday, but today this has improved. Unfortunately, the patient is going to require supplemental oxygen upon her discharge and this has been set up by the social work team. The patient is encouraged to monitor oxygen saturation at home. 2. Acute on chronic heart failure: The patient met criteria of acute on chronic heart failure with elevated BNP, shortness of breath, edema. In addition, the patient's shortness of breath improved greatly with Lasix and supplemental O2. The patient reports significant output, although this is not reflected in the chart. The patient had echo which was fairly unchanged from her previous echo. The patient has been encouraged to follow the dosing recommendations of Dr. Vasquez at her previous followup. We just increased her 40 mg Lasix daily to 60 mg daily. The patient has also been encouraged to weigh herself daily at the same time and record these weights and bring them to her physician. She was also encouraged to call her outdoor emergency care technician if she has greater than 3-pound weight gain in 1 day. 3. Hypomagnesemia: As mentioned above, the patient's magnesium was 1.7. The patient refuses magnesium replacement as she has GI side effects. Therefore, I have encouraged the patient to increase her intake of foods that are high in magnesium. 4. Hypertension: The patient has been normotensive. The patient is to continue her home metoprolol and Cardizem. 5. Asthma: The patient is to continue her home inhaler. 6. Atrial fibrillation: The patient is currently rate controlled. The patient is to continue her aspirin, diltiazem, metoprolol. 7. The patient is not on anticoagulation since she had a GI bleed. 8. The patient is to follow up with her outdoor emergency care technician regarding this. 9. Chronic kidney disease. The patient's creatinine is 1.07, which is at her baseline. 10. Gastroesophageal reflux disease. The patient is to continue her PPI. 11. Followup. I have set up an appointment for the patient to see the Cardiology EVENT SALES MANAGER next week. I have also encouraged the patient to see her primary care in 1 to 3 days. 12. Education: The patient and children were educated on signs and symptoms of new or worsening condition and when to return to the emergency department. Both stated understanding. TIME SPENT: Approximately 35 minutes were spent on this discharge, greater than half of that time was spent [id number] with the patient and her family, discussing discharge plans and instructions. This plan was discussed with my attending, Dr. Dawkins, who is in agreement with my plan of care. SAMMY SAUL, GINGER [id number]/[facility] #: [id number] ROM[place]
== END 2019-03-05 15:20 | disposition home or self-care (01) ==
LOC: ED 06:25 → MEDTELE 10:01
PROVIDERS: ADMIT Internal Medicine; ATTEND Internal Medicine
DX: R06.02 Shortness of breath (principal); I48.2 Chronic atrial fibrillation; I50.9 Heart failure, unspecified; I13.0 Hypertensive heart and chronic kidney disease with heart failure and stage 1 through stage 4 chronic kidney disease, or unspecified chronic kidney disease; N18.3 Chronic kidney disease, stage 3 (moderate); Z85.3 Personal history of malignant neoplasm of breast; Z87.891 Personal history of nicotine dependence; Z79.82 Long term (current) use of aspirin; E83.42 Hypomagnesemia; J45.909 Unspecified asthma, uncomplicated; K21.9 Gastro-esophageal reflux disease without esophagitis
CPT/HCPCS: 36415; 71045; 71275; 80048; 80053; 81003; 81015; 83605; 83735; 83880; 84484; 85025; 85379; 86140; 87086; 93005; 93306; 96365; 96367; 96375; 96376; 99285; A9270-GY; G0378; J1644; J1940; J2930; J3475; Q9967

== ENCOUNTER 2021-02-07 11:55 | Inpatient (IN) ==
[2021-02-07 13:04] LABS: ABS Eosinophils 0.1 10^3/ul (0-0.6); ABS Lymphocytes 0.8 10^3/ul (1.0-4.8); ABS Monocytes 0.6 10^3/ul (0-0.8); ABS Neutrophils 4.3 10^3/ul (1.5-7.7); Eosinophil % 1.1 %; Hematocrit 35 % (35-47); Hemoglobin 11.4 g/dL (12.0-16.0); Lymphocyte % 14.5 %; Mean Corpuscular HGB Conc 33 g/dL (31-36); Mean Corpuscular Hemoglobin 31 pg (27-31); Mean Corpuscular Volume 96 fL (80-97); Mean Platelet Volume 6.6 fL (7.4-10.4); Nucleated Red Blood Cells % 0.1; Platelet Count 223 10^3/uL (150-450); Red Blood Count 3.63 10^6 /uL (3.70-4.87); Red Cell Distribution Width 13 % (10-15); White Blood Count 5.8 10^3/uL (3.5-10.8)
[2021-02-07 13:23] LABS: Troponin I 0.01 ng/mL (<0.03)
[2021-02-07 13:55] LABS: Albumin/Globulin Ratio 1.2 (1-3); Calcium 9.3 mg/dL (8.6-10.3); EGFR African American 57.9 (>60); EGFR Non-African American 47.8 (>60); Globulin 3.3 g/dL (2-4); Potassium 4.8 mmol/L (3.5-5.0); Total Bilirubin 0.5 mg/dL (0.2-1.0); Total Protein 7.3 g/dL (6.4-8.9)
[2021-02-07] MEDS ORDERED: Furosemide 40 mg/4 ml IV VIAL IV SLOW PU ONE (14:19)
[2021-02-07] MEDS ORDERED: Furosemide 40 mg/4 ml IV VIAL IV ONE (15:23)
[2021-02-07] MEDS ORDERED: Nitro 2% OINT (Nitroglycerin) 1 INCH/PAK TOPICAL ONE (15:59)
[2021-02-07] MEDS ORDERED: Morphine 2 MG/ML SYRINGE IV ONE (16:05)
[2021-02-07] MEDS ORDERED: Morphine 4 MG/ML VIAL (1 ml) ONE (16:06)
[2021-02-07] MEDS ORDERED: Lorazepam PYXIS KEY PRN (16:38)
[2021-02-07] MEDS ORDERED: LORazepam 2 mg VIAL 1 ml IV PUSH ONE (16:38)
[2021-02-07 17:24] LABS: Magnesium 1.6 mg/dL (1.9-2.7)
[2021-02-07] MEDS ORDERED: Magnesium Sulfate IV 3 GM in NS 0.9% 100 ml BAG 100 ML IVPB ONE (18:39)
[2021-02-07 19:10] LABS: Troponin I 0.03 ng/mL (<0.03)
[2021-02-07] MEDS ORDERED: NS 0.9% 100 ml BAG 100 ML ONE (19:28)
[2021-02-07] MEDS ORDERED: Heparin 5000 UNITS/ML 1 mL VIAL SUBCUT SCH (22:00)
[2021-02-07 23:06] LABS: Urine Appearance Cloudy; Urine Bilirubin Negative (Negative); Urine Blood 1+ (Negative); Urine Color Straw; Urine Glucose Negative (Negative); Urine Ketones Negative (Negative); Urine Nitrite Negative (Negative); Urine Protein 2+(100 mg/dL) (Negative); Urine Specific Gravity 1.006 (1.002-1.030); Urine Urobilinogen Negative (Negative)
[2021-02-08 00:18] LABS: Urine Bacteria 1+ (Absent); Urine Red Blood Cell 3+(>10/hpf) (Absent); Urine Squamous Epithelial Cell Present (Absent); Urine White Blood Cell Trace(0-5/hpf) (Absent)
[2021-02-08 01:51] LABS: Calcium 9.1 mg/dL (8.6-10.3); Potassium 4.5 mmol/L (3.5-5.0)
[2021-02-08 05:50] LABS: ABS Lymphocytes 0.7 10^3/ul (1.0-4.8); ABS Monocytes 0.5 10^3/ul (0-0.8); ABS Neutrophils 3.5 10^3/ul (1.5-7.7); Hematocrit 32 % (35-47); Hemoglobin 10.5 g/dL (12.0-16.0); Lymphocyte % 15.3 %; Mean Corpuscular HGB Conc 33 g/dL (31-36); Mean Corpuscular Hemoglobin 32 pg (27-31); Mean Corpuscular Volume 96 fL (80-97); Mean Platelet Volume 6.5 fL (7.4-10.4); Nucleated Red Blood Cells % 0.1; Platelet Count 180 10^3/uL (150-450); Red Cell Distribution Width 13 % (10-15); White Blood Count 4.8 10^3/uL (3.5-10.8)
[2021-02-08 06:07] LABS: Calcium 8.8 mg/dL (8.6-10.3); EGFR African American 46.8 (>60); EGFR Non-African American 38.7 (>60); Magnesium 2.2 mg/dL (1.9-2.7); Potassium 4.3 mmol/L (3.5-5.0)
[2021-02-08 07:53] LABS: Phosphorus 4.2 mg/dL (2.5-5.0)
[2021-02-08] MEDS ORDERED: POTASSIUM GLUCONATE PO SCH (09:00)
[2021-02-08] MEDS ORDERED: Furosemide 40 mg/4 ml IV VIAL IV SLOW PU ONE (09:23)
[2021-02-08] MEDS: Aspirin EC 81 mg TAB.EC (enteric coated) PO SCH (09:47)
[2021-02-08 10:06] LABS: Troponin I 0.01 ng/mL (<0.03)
[2021-02-08] MEDS ORDERED: Buffered Lidocaine 1% SYRIN 1 ml INTRADERM ONE (10:06)
[2021-02-08] MEDS: Levalbuterol HFA INHALER MDI INH PRN (12:33)
[2021-02-08] MEDS ORDERED: Nitro 2% OINT (Nitroglycerin) 1 INCH/PAK TOPICAL ONE (14:51)
[2021-02-08] MEDS ORDERED: Nitro Patch/OINT Remove PATCH TOPICAL ONE (23:30)
[2021-02-09] MEDS: Saline FLUSH-CENTRAL 10 ML SYRINGE CENT\\PICC SCH ×2 (06:08→18:12)
[2021-02-09 06:26] LABS: Hematocrit 32 % (35-47); Hemoglobin 10.6 g/dL (12.0-16.0); Mean Corpuscular HGB Conc 33 g/dL (31-36); Mean Corpuscular Hemoglobin 32 pg (27-31); Mean Corpuscular Volume 96 fL (80-97); Mean Platelet Volume 6.6 fL (7.4-10.4); Platelet Count 185 10^3/uL (150-450); Red Blood Count 3.34 10^6 /uL (3.70-4.87); Red Cell Distribution Width 13 % (10-15); White Blood Count 5.5 10^3/uL (3.5-10.8)
[2021-02-09 06:41] LABS: INR 1.1 (0.82-1.09)
[2021-02-09 06:43] LABS: Blood Urea Nitrogen 32 mg/dL (6-24); Calcium 9.3 mg/dL (8.6-10.3); Chloride 92 mmol/L (101-111); EGFR African American 45.6 (>60); EGFR Non-African American 37.7 (>60); Glucose 116 mg/dL (70-100); Magnesium 1.9 mg/dL (1.9-2.7); Phosphorus 3.6 mg/dL (2.5-5.0); Sodium 134 mmol/L (135-145)
[2021-02-09] MEDS ORDERED: Magnesium Sulfate 2 gm BAG 2 GM/50 ML BAG IVPB ONE (06:44)
[2021-02-09 06:51] LABS: Anion Gap 1 mmol/L (2-11); CO2 Carbon Dioxide 41 mmol/L (22-32)
[2021-02-09] MEDS ORDERED: Albuterol/Ipratropium NEB.SOL (2.5/0.5 MG) 3 ML NEB.SOLN INH SCH ×2 (09:00→11:00)
[2021-02-09] MEDS: Aspirin EC 81 mg TAB.EC (enteric coated) PO SCH (09:15)
[2021-02-09] MEDS: Albuterol 2.5mg/3 ml (0.083%) NEB.SOLN INH SCH ×2 (13:52→19:36)
[2021-02-09 22:08] LABS: % Iron Saturation 9 % (15-55); Iron 27 ug/dL (50-212); Total Iron Binding Capacity 287 mcg/dL (250-450); Transferrin 205 mg/dL (203-362); Unsaturated Iron Binding < 272 ug/dL
[2021-02-09 22:30] LABS: Ferritin 105.4 ng/mL (11-307)
[2021-02-09 22:34] LABS: Folate 8.29 ng/mL (5.90-24.80)
[2021-02-09 22:35] LABS: Vitamin B12 162 pg/mL (180-914)
[2021-02-10] MEDS: Albuterol 2.5mg/3 ml (0.083%) NEB.SOLN INH SCH ×4 (00:15→19:53)
[2021-02-10] MEDS: Saline FLUSH-CENTRAL 10 ML SYRINGE CENT\\PICC SCH ×2 (04:58→17:42)
[2021-02-10 05:31] LABS: Calcium 9.7 mg/dL (8.6-10.3); EGFR African American 41.3 (>60); EGFR Non-African American 34.1 (>60)
[2021-02-10] MEDS: Aspirin EC 81 mg TAB.EC (enteric coated) PO SCH (07:57)
[2021-02-10] MEDS: Lidocaine PATCH 5% PATCH TRANSDERM SCH ×2 (12:33→17:42)
[2021-02-10] MEDS: Lidocaine Patch REMOVE PATCH PATCH OFF SCH ×2 (20:48→20:49)
[2021-02-11] MEDS: Albuterol 2.5mg/3 ml (0.083%) NEB.SOLN INH SCH ×2 (00:27→07:25)
[2021-02-11] MEDS ORDERED: Albuterol 2.5mg/3 ml (0.083%) NEB.SOLN INH PRN (08:24)
[2021-02-11] MEDS: Saline FLUSH-CENTRAL 10 ML SYRINGE CENT\\PICC SCH ×2 (08:39→17:00)
[2021-02-11] MEDS: Senna TAB 8.6 mg TAB PO SCH (08:39)
[2021-02-11] MEDS: Lidocaine PATCH 5% PATCH TRANSDERM SCH ×2 (08:40→08:41)
[2021-02-11] MEDS: Aspirin EC 81 mg TAB.EC (enteric coated) PO SCH (08:40)
[2021-02-11] MEDS: Polyethylene Glycol 3350 17 GM PACKET PO SCH (08:41)
[2021-02-11 09:27] LABS: Calcium 9.4 mg/dL (8.6-10.3); EGFR Non-African American 31.4 (>60); Potassium 3.9 mmol/L (3.5-5.0)
[2021-02-11] MEDS: Levalbuterol HFA INHALER MDI INH PRN (15:15)
[2021-02-11] MEDS: Lidocaine Patch REMOVE PATCH PATCH OFF SCH ×2 (20:59)
[2021-02-12] MEDS: Saline FLUSH-CENTRAL 10 ML SYRINGE CENT\\PICC SCH ×2 (04:45→16:37)
[2021-02-12] MEDS: Aspirin EC 81 mg TAB.EC (enteric coated) PO SCH (08:23)
[2021-02-12] MEDS: Lidocaine PATCH 5% PATCH TRANSDERM SCH ×2 (08:24)
[2021-02-12] MEDS: Senna TAB 8.6 mg TAB PO SCH (08:25)
[2021-02-12] MEDS: BISACODYL 5 MG PO PRN ×2 (08:25→11:23)
[2021-02-12] MEDS: Polyethylene Glycol 3350 17 GM PACKET PO SCH (08:25)
[2021-02-12 09:41] LABS: Anion Gap 8 mmol/L (2-11); Blood Urea Nitrogen 53 mg/dL (6-24); CO2 Carbon Dioxide 34 mmol/L (22-32); Calcium 9.6 mg/dL (8.6-10.3); Chloride 87 mmol/L (101-111); EGFR African American 35.1 (>60); Glucose 139 mg/dL (70-100); Potassium 3.8 mmol/L (3.5-5.0); Sodium 129 mmol/L (135-145)
[2021-02-12 18:13] LABS: % Iron Saturation 11 % (15-55); Iron 31 ug/dL (50-212); Total Iron Binding Capacity 286 mcg/dL (250-450); Transferrin 204 mg/dL (203-362); Unsaturated Iron Binding < 271 ug/dL
[2021-02-12 18:36] LABS: Ferritin 215.4 ng/mL (11-307)
[2021-02-12 18:39] LABS: Folate 8.02 ng/mL (5.90-24.80)
[2021-02-12 18:40] LABS: Vitamin B12 293 pg/mL (180-914)
[2021-02-12] MEDS: Lidocaine Patch REMOVE PATCH PATCH OFF SCH ×2 (21:27)
[2021-02-13] MEDS: Saline FLUSH-CENTRAL 10 ML SYRINGE CENT\\PICC SCH ×2 (05:44→18:48)
[2021-02-13 08:22] LABS: Calcium 9.6 mg/dL (8.6-10.3); EGFR African American 32.4 (>60); EGFR Non-African American 26.8 (>60); Potassium 3.7 mmol/L (3.5-5.0)
[2021-02-13] MEDS: Aspirin EC 81 mg TAB.EC (enteric coated) PO SCH (09:17)
[2021-02-13] MEDS: Polyethylene Glycol 3350 17 GM PACKET PO SCH ×2 (09:20→09:25)
[2021-02-13] MEDS: Senna TAB 8.6 mg TAB PO SCH ×2 (09:20→13:30)
[2021-02-13] MEDS: Lidocaine PATCH 5% PATCH TRANSDERM SCH ×2 (11:02→11:04)
[2021-02-13] MEDS: Lidocaine Patch REMOVE PATCH PATCH OFF SCH ×2 (21:12)
[2021-02-13] MEDS: Levalbuterol HFA INHALER MDI INH PRN (23:19)
[2021-02-14] MEDS: Saline FLUSH-CENTRAL 10 ML SYRINGE CENT\\PICC SCH ×2 (06:21→17:00)
[2021-02-14 07:00] LABS: Calcium 9.5 mg/dL (8.6-10.3); EGFR African American 35.4 (>60); EGFR Non-African American 29.2 (>60); Potassium 3.6 mmol/L (3.5-5.0)
[2021-02-14] MEDS: Aspirin EC 81 mg TAB.EC (enteric coated) PO SCH (08:46)
[2021-02-14] MEDS: Lidocaine PATCH 5% PATCH TRANSDERM SCH ×2 (08:47)
[2021-02-14] MEDS: Senna TAB 8.6 mg TAB PO SCH (08:47)
[2021-02-14] MEDS: Polyethylene Glycol 3350 17 GM PACKET PO SCH (08:55)
[2021-02-14] MEDS: Iron Sucrose 200 MG in NS 0.9% 100 ml BAG 100 ML IVPB SCH (09:12)
[2021-02-14] MEDS ORDERED: Polyethylene Glycol 3350 17 GM PACKET PO PRN (09:32)
[2021-02-14] MEDS ORDERED: Magnesium Hydroxide LIQ 30 ML UDC PO PRN (09:32)
[2021-02-14] MEDS: Lidocaine Patch REMOVE PATCH PATCH OFF SCH ×2 (20:11)
[2021-02-15] MEDS: Saline FLUSH-CENTRAL 10 ML SYRINGE CENT\\PICC SCH (06:00)
[2021-02-15 06:31] LABS: ABS Eosinophils 0.1 10^3/ul (0-0.6); ABS Lymphocytes 0.6 10^3/ul (1.0-4.8); ABS Monocytes 0.6 10^3/ul (0-0.8); Eosinophil % 1.6 %; Hematocrit 32 % (35-47); Hemoglobin 10.5 g/dL (12.0-16.0); Lymphocyte % 11.4 %; Mean Corpuscular HGB Conc 33 g/dL (31-36); Mean Corpuscular Hemoglobin 31 pg (27-31); Mean Corpuscular Volume 94 fL (80-97); Mean Platelet Volume 6.6 fL (7.4-10.4); Platelet Count 287 10^3/uL (150-450); Red Blood Count 3.38 10^6 /uL (3.70-4.87); Red Cell Distribution Width 13 % (10-15); White Blood Count 5.3 10^3/uL (3.5-10.8)
[2021-02-15 06:46] LABS: Calcium 9.6 mg/dL (8.6-10.3); EGFR African American 37.2 (>60); EGFR Non-African American 30.7 (>60); Magnesium 2.1 mg/dL (1.9-2.7); Potassium 3.8 mmol/L (3.5-5.0)
[2021-02-15 08:30] VITALS: BP 131/76
[2021-02-15] MEDS: Iron Sucrose 200 MG in NS 0.9% 100 ml BAG 100 ML IVPB SCH (08:31)
[2021-02-15] MEDS: Aspirin EC 81 mg TAB.EC (enteric coated) PO SCH (08:35)
[2021-02-15] MEDS: Lidocaine PATCH 5% PATCH TRANSDERM SCH ×2 (08:37)
[2021-02-15] MEDS: Senna TAB 8.6 mg TAB PO SCH (08:43)
== END 2021-02-15 11:24 | disposition home or self-care (01) | DRG 291 ==
LOC: ED 11:55 → MEDTELE 15:19 → ICU 18:06 → MEDTELE 02-09 18:09
PROVIDERS: ADMIT Pediatrics; ATTEND Hospitalist

== ENCOUNTER 2024-05-07 07:26 | Inpatient (IN) ==
[2024-05-07] MEDS: Furosemide 40 mg/4 ml IV VIAL IV SLOW PU ONE ×3 (08:23→15:16)
[2024-05-07] MEDS ORDERED: Lorazepam PYXIS KEY PRN (08:39)
[2024-05-07 08:45] LABS: ABS Eosinophils 0.1 10^3/uL (0.0-0.5); ABS Lymphocytes 1.1 10^3/uL (1.0-4.8); ABS Monocytes 0.7 10^3/uL (0.0-0.9); ABS Neutrophils 4.6 10^3/uL (1.5-7.6); ABS Nucleated RBC 0.01 10^3/ul; Eosinophil % 1.1 %; Hematocrit 32.9 % (35-45); Hemoglobin 10.6 g/dL (11.5-14.3); Lymphocyte % 16.2 %; Mean Corpuscular Hemoglobin 29.4 pg (27-33); Mean Corpuscular Hgb Conc 32.2 g/dL (31-36); Mean Corpuscular Volume 91.3 fL (80-97); Nucleated Red Blood Cells % 0.2 %/100WBC (0.0-0.8); Platelet Count 237 10^3/uL (150-450); Red Blood Count 3.61 10^6/uL (3.63-4.92); Red Cell Distribution Width 14.1 % (12-17); White Blood Count 6.5 10^3/uL (3.8-11.8)
[2024-05-07] MEDS: LORazepam 2 mg VIAL 1 ml IV PUSH ONE (08:46)
[2024-05-07 08:56] LABS: INR 1.03 (0.85-1.14)
[2024-05-07 09:16] LABS: Albumin 4.5 g/dL (3.2-5.2); Albumin/Globulin Ratio 1.4 (1-3); Calcium 10.2 mg/dL (8.6-10.3); Creatinine, Serum 2.21 mg/dL (0.51-0.95); Globulin 3.2 g/dL (2-4); Potassium 4.7 mmol/L (3.5-5.0); Total Bilirubin 0.5 mg/dL (0.2-1.0); Total Protein 7.7 g/dL (6.4-8.9); eGFR CKD-EPI 21.1 (>60)
[2024-05-07] MEDS ORDERED: Senna TAB 8.6 mg TAB PO PRN (11:00)
[2024-05-07] MEDS ORDERED: Polyethylene Glycol 3350 17 GM PACKET PO PRN (11:00)
[2024-05-07] MEDS ORDERED: Levalbuterol HFA INHALER MDI INH PRN (11:06)
[2024-05-07 11:15] LABS: High Sensitivity Troponin 1 Hr 17 pg/mL (<15)
[2024-05-07] MEDS: Enoxaparin 30 MG/0.3 ML SYR SUBCUT SCH (15:16)
[2024-05-07 18:43] LABS: Urine Appearance Clear; Urine Bilirubin Negative (Negative); Urine Blood 3+ (Negative); Urine Color Colorless; Urine Glucose Negative (Negative); Urine Ketones Negative (Negative); Urine Nitrite Negative (Negative); Urine Protein 1+ (>=30 mg/dL) (Negative); Urine Urobilinogen Negative (Negative); Urine pH 6.5 (5.0-8.0)
[2024-05-07 18:51] LABS: Urine Bacteria Absent /HPF (Absent); Urine Red Blood Cell 3+(>10/hpf) /HPF (0-Trace); Urine White Blood Cell 1+(6-10/hpf) /HPF (0-Trace)
[2024-05-07] MEDS: Aspirin EC 81 mg TAB.EC (enteric coated) PO SCH (22:10)
[2024-05-08 07:29] LABS: ABS Eosinophils 0.1 10^3/uL (0.0-0.5); ABS Lymphocytes 0.8 10^3/uL (1.0-4.8); ABS Monocytes 0.5 10^3/uL (0.0-0.9); ABS Neutrophils 3.5 10^3/uL (1.5-7.6); Eosinophil % 1.4 %; Hematocrit 29.8 % (35-45); Lymphocyte % 15.5 %; Mean Corpuscular Hemoglobin 30.5 pg (27-33); Mean Corpuscular Hgb Conc 33.6 g/dL (31-36); Mean Platelet Volume 7.2 fL (7.5-11.2); Platelet Count 198 10^3/uL (150-450); Red Blood Count 3.27 10^6/uL (3.63-4.92); Red Cell Distribution Width 13.6 % (12-17); White Blood Count 4.9 10^3/uL (3.8-11.8)
[2024-05-08 07:52] LABS: Calcium 9.7 mg/dL (8.6-10.3); Creatinine, Serum 2.2 mg/dL (0.51-0.95); Potassium 4.2 mmol/L (3.5-5.0); eGFR CKD-EPI 21.2 (>60)
[2024-05-08] MEDS ORDERED: Furosemide 40 mg/4 ml IV VIAL IV SLOW PU SCH (08:00)
[2024-05-08] MEDS: Sulfur Hexaflouride MICROSPHR 25 MG VIAL IV PRN (12:00)
[2024-05-08] MEDS ORDERED: Sulfur Hexaflouride MICROSPHR 25 MG VIAL ONE (12:03)
[2024-05-08] MEDS: Furosemide 40 mg/4 ml IV VIAL IV SLOW PU SCH (13:56)
[2024-05-09 08:47] LABS: ABS Eosinophils 0.1 10^3/uL (0.0-0.5); ABS Lymphocytes 0.7 10^3/uL (1.0-4.8); ABS Monocytes 0.6 10^3/uL (0.0-0.9); ABS Neutrophils 4.1 10^3/uL (1.5-7.6); Eosinophil % 1.5 %; Hematocrit 29.4 % (35-45); Hemoglobin 9.5 g/dL (11.5-14.3); Lymphocyte % 13.4 %; Mean Corpuscular Hemoglobin 29.5 pg (27-33); Mean Corpuscular Hgb Conc 32.4 g/dL (31-36); Mean Corpuscular Volume 91.1 fL (80-97); Mean Platelet Volume 7.2 fL (7.5-11.2); Nucleated Red Blood Cells % 0.1 %/100WBC (0.0-0.8); Platelet Count 187 10^3/uL (150-450); Red Blood Count 3.23 10^6/uL (3.63-4.92); Red Cell Distribution Width 13.9 % (12-17); White Blood Count 5.6 10^3/uL (3.8-11.8)
[2024-05-09 09:08] LABS: Albumin 3.7 g/dL (3.2-5.2); Albumin/Globulin Ratio 1.4 (1-3); Calcium 9.8 mg/dL (8.6-10.3); Creatinine, Serum 2.08 mg/dL (0.51-0.95); Globulin 2.6 g/dL (2-4); Potassium 4.1 mmol/L (3.5-5.0); Total Bilirubin 0.4 mg/dL (0.2-1.0); Total Protein 6.3 g/dL (6.4-8.9); eGFR CKD-EPI 22.6 (>60)
[2024-05-10 12:58] LABS: Albumin 3.8 g/dL (3.2-5.2); Albumin/Globulin Ratio 1.4 (1-3); Calcium 9.9 mg/dL (8.6-10.3); Creatinine, Serum 2.18 mg/dL (0.51-0.95); Globulin 2.7 g/dL (2-4); Total Bilirubin 0.5 mg/dL (0.2-1.0); Total Protein 6.5 g/dL (6.4-8.9); eGFR CKD-EPI 21.4 (>60)
[2024-05-11 13:49] VITALS: BP 173/76
== END 2024-05-11 15:00 | disposition home or self-care (01) | DRG 291 ==
LOC: ED 07:26 → EDHOLD 07:26 → SUATTDRO 11:00 → MED 16:12
PROVIDERS: ADMIT Internal Medicine; ATTEND Internal Medicine

== ENCOUNTER 2024-05-22 21:43 | Inpatient (IN) ==
[2024-05-22 22:06] LABS: ABS Basophils 0.1 10^3/uL (0.0-0.1); ABS Eosinophils 0.1 10^3/uL (0.0-0.5); ABS Lymphocytes 0.8 10^3/uL (1.0-4.8); ABS Monocytes 0.6 10^3/uL (0.0-0.9); ABS Neutrophils 7.1 10^3/uL (1.5-7.6); ABS Nucleated RBC 0.01 10^3/ul; Eosinophil % 1.1 %; Hematocrit 26.2 % (35-45); Hemoglobin 8.4 g/dL (11.5-14.3); Lymphocyte % 9.2 %; Mean Corpuscular Hemoglobin 29.2 pg (27-33); Mean Corpuscular Volume 91.3 fL (80-97); Mean Platelet Volume 6.7 fL (7.5-11.2); Nucleated Red Blood Cells % 0.1 %/100WBC (0.0-0.8); Platelet Count 281 10^3/uL (150-450); Red Blood Count 2.87 10^6/uL (3.63-4.92); Red Cell Distribution Width 13.9 % (12-17); White Blood Count 8.7 10^3/uL (3.8-11.8)
[2024-05-22 22:11] LABS: INR 1.09 (0.85-1.14)
[2024-05-22 22:57] LABS: Albumin/Globulin Ratio 1.5 (1-3); Calcium 9.9 mg/dL (8.6-10.3); Creatinine, Serum 2.53 mg/dL (0.51-0.95); Globulin 2.7 g/dL (2-4); Potassium 5.3 mmol/L (3.5-5.0); Total Bilirubin 0.4 mg/dL (0.2-1.0); Total Protein 6.7 g/dL (6.4-8.9); eGFR CKD-EPI 17.9 (>60)
[2024-05-23 00:14] LABS: Venous Bicarbonate HCO3 26.9 mmol/L (24-28)
[2024-05-23 00:14] LABS: High Sensitivity Troponin 1 Hr 17 pg/mL (<15)
[2024-05-23] MEDS: Furosemide 40 mg/4 ml IV VIAL IV SLOW PU ONE (01:43)
[2024-05-23] MEDS: methylPREDNISolone SOD SUCC 40 mg/ml 1 ml VIAL IV SCH (04:29)
[2024-05-23 04:37] LABS: ABS Eosinophils 0.1 10^3/uL (0.0-0.5); ABS Monocytes 0.5 10^3/uL (0.0-0.9); ABS Neutrophils 5.2 10^3/uL (1.5-7.6); Eosinophil % 1.7 %; Hematocrit 24.1 % (35-45); Hemoglobin 7.8 g/dL (11.5-14.3); Lymphocyte % 14.2 %; Mean Corpuscular Hemoglobin 29.6 pg (27-33); Mean Corpuscular Hgb Conc 32.4 g/dL (31-36); Mean Corpuscular Volume 91.4 fL (80-97); Mean Platelet Volume 6.9 fL (7.5-11.2); Platelet Count 253 10^3/uL (150-450); Red Blood Count 2.64 10^6/uL (3.63-4.92); Red Cell Distribution Width 13.6 % (12-17); White Blood Count 6.9 10^3/uL (3.8-11.8)
[2024-05-23 05:35] LABS: Calcium 9.8 mg/dL (8.6-10.3); Creatinine, Serum 2.41 mg/dL (0.51-0.95); Magnesium 2.2 mg/dL (1.9-2.7); Potassium 4.9 mmol/L (3.5-5.0)
[2024-05-23] MEDS: Albuterol 2.5mg/3 ml (0.083%) NEB.SOLN INH PRN (08:05)
[2024-05-23] MEDS ORDERED: Sulfur Hexaflouride MICROSPHR 25 MG VIAL IV PRN (08:12)
[2024-05-23] MEDS: cefTRIAXone 1 gm/50 mL D5W 1 GM/50 ML BAG IV SCH (09:39)
[2024-05-23] MEDS: Furosemide 100 mg/10 ml IV VIAL IV ONE (09:47)
[2024-05-23] MEDS: Furosemide 40 mg/4 ml IV VIAL IV ONE ×2 (09:47→11:30)
[2024-05-23] MEDS: Azithromycin 500 mg/250 ml NS 500 MG/250 ML BAG IVPB SCH (10:46)
[2024-05-23] MEDS: Levalbuterol 0.63MG/3ML NEB UNIT OF USE INH PRN (14:11)
[2024-05-23] MEDS: Empagliflozin 25 MG TAB PO SCH (14:18)
[2024-05-23] MEDS: Aspirin EC 81 mg TAB.EC (enteric coated) PO SCH (20:17)
[2024-05-23] MEDS: OLANZapine 5 mg TAB *ODT PO SCH (21:54)
[2024-05-23] MEDS: Morphine 2 MG/ML SYRINGE IV ONE (21:55)
[2024-05-23] MEDS: Morphine 2 MG/ML SYRINGE ONE (21:59)
[2024-05-24 04:59] LABS: ABS Lymphocytes 0.5 10^3/uL (1.0-4.8); ABS Monocytes 0.4 10^3/uL (0.0-0.9); ABS Neutrophils 5.4 10^3/uL (1.5-7.6); ABS Nucleated RBC 0.01 10^3/ul; Hematocrit 23.9 % (35-45); Hemoglobin 7.8 g/dL (11.5-14.3); Lymphocyte % 8.4 %; Mean Corpuscular Hemoglobin 30.1 pg (27-33); Mean Corpuscular Hgb Conc 32.8 g/dL (31-36); Mean Corpuscular Volume 91.9 fL (80-97); Mean Platelet Volume 7.1 fL (7.5-11.2); Nucleated Red Blood Cells % 0.2 %/100WBC (0.0-0.8); Platelet Count 247 10^3/uL (150-450); White Blood Count 6.3 10^3/uL (3.8-11.8)
[2024-05-24 05:16] LABS: Calcium 9.8 mg/dL (8.6-10.3); Creatinine, Serum 2.32 mg/dL (0.51-0.95); Magnesium 2.3 mg/dL (1.9-2.7); Potassium 4.9 mmol/L (3.5-5.0); eGFR CKD-EPI 19.9 (>60)
[2024-05-24] MEDS ORDERED: COVID VAC 24-25 (12+) (Moderna) Syringe 0.5 mL IM ONE (09:00)
[2024-05-24] MEDS ORDERED: Pneumococcal 20-Valent Conj 0.5 ML SYR Vaccine IM ONE (09:00)
[2024-05-24] MEDS ORDERED: Influenza Vaccine *TRI* 2024-25* 0.5 ML SYRINGE IM ONE (09:00)
[2024-05-24] MEDS: Levalbuterol 0.63MG/3ML NEB UNIT OF USE INH PRN (09:52)
[2024-05-24 10:53] LABS: Folate 12.69 ng/mL (5.90-24.80)
[2024-05-24] MEDS: Levalbuterol HFA INHALER MDI INH PRN (16:10)
[2024-05-25 05:05] LABS: ABS Lymphocytes 0.6 10^3/uL (1.0-4.8); ABS Monocytes 0.6 10^3/uL (0.0-0.9); ABS Neutrophils 8.2 10^3/uL (1.5-7.6); ABS Nucleated RBC 0.02 10^3/ul; Hemoglobin 7.9 g/dL (11.5-14.3); Lymphocyte % 6.4 %; Mean Corpuscular Hemoglobin 30.4 pg (27-33); Mean Corpuscular Hgb Conc 32.9 g/dL (31-36); Mean Corpuscular Volume 92.3 fL (80-97); Mean Platelet Volume 6.9 fL (7.5-11.2); Nucleated Red Blood Cells % 0.2 %/100WBC (0.0-0.8); Platelet Count 246 10^3/uL (150-450); Red Cell Distribution Width 13.9 % (12-17); White Blood Count 9.4 10^3/uL (3.8-11.8)
[2024-05-25 05:59] LABS: Calcium 9.8 mg/dL (8.6-10.3); Creatinine, Serum 2.45 mg/dL (0.51-0.95); Magnesium 2.5 mg/dL (1.9-2.7); eGFR CKD-EPI 18.6 (>60)
[2024-05-25 10:21] VITALS: BP 122/67
[2024-05-25] MEDS ORDERED: Lorazepam PYXIS KEY PRN (11:48)
[2024-05-25] MEDS: LORazepam 2 mg VIAL 1 ml IV PUSH PRN ×2 (12:30→14:00)
[2024-05-25] MEDS: Morphine 10 MG/ML VIAL (1 ml) IV PRN ×2 (12:30→14:00)
== END 2024-05-25 15:04 | disposition expired | DRG 291 ==
LOC: ED 21:43 → EDHOLD 05-23 00:31 → ICU 05-23 01:04
PROVIDERS: ADMIT Internal Medicine Critical Care Medicine; ATTEND Internal Medicine Critical Care Medicine